=== PATIENT | male | born 1990 | race Caucasian/White ===

== ENCOUNTER 2016-10-31 22:23 | Emergency (ER) | payer MEDICAID ==
[~2016-10-31] VITALS: Ht 172.7 cm; Wt 50.0 kg
[~2016-10-31 22:23] MED LIST: AMOXICILLIN 50500 MG PO; ATIVAN 1MG T1 MG/TAB; ATIVAN 1MG T1 MG/TAB PO; ATIVAN2 MG/ML PO; CALCIUM 600 + V1 TA1 PO; CARAFATE S1 GM/10 ML PO; CEFTIN500 MG PO; CLEOCIN HC150 MG/CAP PO; CLEOCIN HCL300 MG PEG; CLEOCIN HCL300 MG PO; COLACE 100100 MG/CAP; COLACE 100100 MG/CAP PO; DEPAKOTE; DEPAKOTE 250MG250 MG PO; DEPAKOTE ER 50500 MG PO; DEPAKOTE500 MG PO; ENSURE 237 ML237 ML PEG; KEPPRA 500MG500 MG PO; KEPPRA750 MG PO; LAMICTAL 100MG100 MG; LAMICTAL200 MG PO; LEVAQUIN 750MG750 M1 PEG; LEVAQUIN 750MG750 M1 PO; LEVETIRACETAM PO; LEVOCARNITINE PO; LEVOCARNITINE330 MG PO; MIDAZOLAM 2 MG/ML INH; MIDAZOLAM NAS; ONFI 10MG; PERCOCET 325 MG1 TA2 PO; PROTONIX 40MG T40 MG; PROTONIX 40MG T40 MG PO; SENNA1 TAB PO; TUMS SMOOTHIES750 M1; VIMPAT200 MG; VIMPAT50 MG PO; VITAMIN D 50,1.25 MG PO; VITAMIN D1000 IU; [UNRECOGNIZED DRUG - OTHER] PO; [UNRECOGNIZED DRUG - OTHER] RC
[2016-10-31 22:24] VITALS: TEMP 99.1
[2016-10-31] MEDS ORDERED: ONFI 20MG PO (22:47)
[2016-10-31] MEDS ORDERED: PEPCID40 MG PO (22:47)
[2016-10-31 23:06] LABS: BASO # 0.1 (0.0-0.2); BASO % 0.3 % (0.0-2.0); EOS % 0.1 % (0-4.0); GRAN # 12.1 (1.4-6.5); GRAN % 81.8 % (42.2-75.2); HEMATOCRIT 41.8 % (42.0-52.0); HEMOGLOBIN 13.9 g/dl (13.5-18.0); LYMPH # 1.4 (1.2-3.4); LYMPH % 9.2 % (20.0-51.0); MEAN CELL VOLUME 93 fl (80.0-100.0); MEAN CORPUSCULAR HEMOGLOBIN 31 pg (27.0-31.0); MEAN CORPUSCULAR HGB CONC 33 g/dl (33.0-37.0); MEAN PLATELET VOLUME 10.2 fl (7.4-10.4); MONO # 1.2 (0.1-0.6); MONO % 7.9 % (1.7-9.3); PLATELET COUNT 235 K/mm3 (130-400); REDCELL DISTRIBUTION WIDTH-CV 12.5 % (11.5-14.5); WHITE BLOOD COUNT 14.8 K/mm3 (4.8-10.8)
[2016-10-31 23:15] LABS: ADJUSTED CALCIUM 9.5 mg/dL (8.4-10.2); ALBUMIN 4.8 gm/dL (3.5-5.0); BILIRUBIN,TOTAL 0.4 mg/dL (0.0-1.0); CALCIUM 10.1 mg/dL (8.4-10.2); CREATININE, serum 0.97 mg/dL (0.66-1.25); POTASSIUM 3.8 mmol/L (3.4-5.0); TOTAL PROTEIN 8.2 gm/dL (6.4-8.2)
[2016-10-31] MEDS ORDERED: SLOW FE142 MG PO (23:16)
[2016-10-31] MEDS ORDERED: METAMUCIL3.4 GM/DOS PO (23:17)
[2016-10-31] MEDS ORDERED: LINZESS145CAP (23:19)
[2016-10-31 23:40] LABS: PH 5 (5-8); SQUAMOUS EPITHELIAL 0-2 /hpf; URINE APPEARANCE Clear; URINE BACTERIA Rare /hpf; URINE BILIRUBIN Negative (NEGATIVE); URINE BLOOD Negative (NEGATIVE); URINE COLOR Yellow; URINE GLUCOSE Negative (NEGATIVE); URINE KETONE Negative (NEGATIVE); URINE RBC None Seen /hpf; URINE UROBILINOGEN Negative (NEGATIVE); URINE WBC 0-2 /hpf
[2016-10-31] MEDS ORDERED: LEVAQUIN 5500 MG/TA1 PO (23:47)
[2016-11-01 00:20] VITALS: BP 102/63; PULSE 93
== END 2016-11-01 00:20 | disposition home or self-care (01) ==
LOC: COL.ER 22:23
PROVIDERS: Emergency Medicine
DX: G40.909 Epilepsy, unspecified, not intractable, without status epilepticus (principal); J18.9 Pneumonia, unspecified organism; Z87.820 Personal history of traumatic brain injury; G80.9 Cerebral palsy, unspecified
CPT/HCPCS: J0696; J7030

== ENCOUNTER 2016-11-01 12:51 | Inpatient (IN) | payer MEDICAID ==
[~2016-11-01] VITALS: Ht 172.7 cm; Wt 48.4 kg
[2016-11-01] VITALS (173 sets, daily range): BP systolic 96–106; BP diastolic 53–61; PULSE 91–114; TEMP 100.5–101.1; O2SAT 91–100
[~2016-11-01 12:51] MED LIST changes: +LEVAQUIN 5500 MG/TA1 PO; +LINZESS145CAP; +METAMUCIL3.4 GM/DOS PO; +ONFI 20MG PO; +PEPCID40 MG PO; +SLOW FE142 MG PO
[2016-11-01 13:21] LABS: ADJUSTED CALCIUM 9.9 mg/dL (8.4-10.2); ALBUMIN 4.4 gm/dL (3.5-5.0); BILIRUBIN,TOTAL 0.7 mg/dL (0.0-1.0); C-REACTIVE PROTEIN 1.1 mg/dL (0.0-0.9); CALCIUM 10.2 mg/dL (8.4-10.2); CREATININE, serum 1.04 mg/dL (0.66-1.25); POTASSIUM 4.4 mmol/L (3.4-5.0); TOTAL PROTEIN 7.9 gm/dL (6.4-8.2)
[2016-11-01 13:23] LABS: HEMATOCRIT 43.3 % (42.0-52.0); HEMOGLOBIN 13.6 g/dl (13.5-18.0); MEAN CELL VOLUME 97 fl (80.0-100.0); MEAN CORPUSCULAR HEMOGLOBIN 31 pg (27.0-31.0); MEAN CORPUSCULAR HGB CONC 31 g/dl (33.0-37.0); MEAN PLATELET VOLUME 10.7 fl (7.4-10.4); PLATELET COUNT 286 K/mm3 (130-400); RED BLOOD COUNT 4.46 M/mm3 (4.20-5.60); REDCELL DISTRIBUTION WIDTH-CV 12.8 % (11.5-14.5); WHITE BLOOD COUNT 15.5 K/mm3 (4.8-10.8)
[2016-11-01 13:35] LABS: PROLACTIN 69.9 ng/mL (3.7-17.9)
[2016-11-01 13:45] LABS: ADD PATHOLOGY DIFF REVIEW NO
[2016-11-01 14:19] LABS: PH 6 (5-8); URINE APPEARANCE Clear; URINE COLOR Yellow
[2016-11-01 14:20] LABS: URINE BILIRUBIN Negative (NEGATIVE); URINE BLOOD Negative (NEGATIVE); URINE GLUCOSE Negative (NEGATIVE); URINE KETONE Negative (NEGATIVE); URINE UROBILINOGEN Negative (NEGATIVE)
[2016-11-01 14:29] LABS: URINE BACTERIA Rare /hpf
[2016-11-01 14:43] LABS: BAND 10 % (0-10); NEUTROPHILS 48 % (42.0-75.2); PLATELET ESTIMATE NORMAL (NORMAL); TOTAL CELLS COUNTED 100
[2016-11-01 17:47] LABS: INFLUENZA B NEGATIVE
[2016-11-01 22:10] LABS: ALLEN TEST YES; ALLENS TEST RESULT PASS; ARTERIAL BLD GAS O2 SATURATION 98.5 % (92-100); ARTERIAL BLOOD GAS BASE EXCESS -3.2 (-2-2); ARTERIAL BLOOD GAS HCO3 20.9 meq/L (22-26); ARTERIAL BLOOD GAS PO2 145.6 mmHg (80-100); ATS? YES
[2016-11-02] VITALS (811 sets, daily range): BP systolic 86–143; BP diastolic 40–93; PULSE 65–104; TEMP 97–98.9; O2SAT 94–100
[2016-11-02 05:27] LABS: ARTERIAL BLD GAS TCO2 CT 23.8; ARTERIAL BLOOD GAS HCO3 22.5 meq/L (22-26); ARTERIAL BLOOD GAS PHT 7.34 C (7.35-7.45); ARTERIAL BLOOD GAS pH 7.34 (7.35-7.45)
[2016-11-02 05:29] LABS: ALLEN TEST YES; ALLENS TEST RESULT PASS; ARTERIAL BLD GAS TCO2 CT 23.8; ARTERIAL BLOOD GAS HCO3 22.5 meq/L (22-26); ARTERIAL BLOOD GAS PO2 138.3 mmHg (80-100); ARTERIAL BLOOD GAS pH 7.34 (7.35-7.45); ATS? YES
[2016-11-02 05:54] LABS: BASO % 0.4 % (0.0-2.0); EOS % 0.2 % (0-4.0); GRAN % 58.5 % (42.2-75.2); LYMPH # 2.8 (1.2-3.4); LYMPH % 32.6 % (20.0-51.0); MEAN CELL VOLUME 96 fl (80.0-100.0); MEAN CORPUSCULAR HGB CONC 32 g/dl (33.0-37.0); MEAN PLATELET VOLUME 10.2 fl (7.4-10.4); MONO # 0.7 (0.1-0.6); MONO % 8.2 % (1.7-9.3); RED BLOOD COUNT 3.41 M/mm3 (4.20-5.60); WHITE BLOOD COUNT 8.6 K/mm3 (4.8-10.8)
[2016-11-02 05:55] LABS: HEMATOCRIT 32.8 % (42.0-52.0); HEMOGLOBIN 10.6 g/dl (13.5-18.0); MEAN CORPUSCULAR HEMOGLOBIN 31 pg (27.0-31.0); PLATELET COUNT 173 K/mm3 (130-400)
[2016-11-02 06:17] LABS: CALCIUM 7.8 mg/dL (8.4-10.2); CREATININE, serum 0.75 mg/dL (0.66-1.25); POTASSIUM 3.6 mmol/L (3.4-5.0)
[2016-11-02 11:30] LABS: ARTERIAL BLD GAS TCO2 CT 23.3; ARTERIAL BLOOD GAS HCO3 22.1 meq/L (22-26); ARTERIAL BLOOD GAS PHT 7.37 C (7.35-7.45); ARTERIAL BLOOD GAS pH 7.37 (7.35-7.45); OXYHEMOGLOBIN 96.8 %
[2016-11-02 11:32] LABS: ARTERIAL BLOOD GAS PO2 132.9 mmHg (80-100); ARTERIAL BLOOD GAS PO2T 132.9 (80-100); ATS? YES
[2016-11-02 12:59] LABS: ARTERIAL BLOOD GAS PO2 138.3 mmHg (80-100); ARTERIAL BLOOD GAS PO2T 138.3 (80-100); ATS? YES
[2016-11-03] VITALS (945 sets, daily range): BP systolic 89–106; BP diastolic 41–67; PULSE 79–97; TEMP 97–99.7; O2SAT 95–100
[2016-11-03 06:07] LABS: BASO % 0.3 % (0.0-2.0); EOS # 0.1 (0.0-0.7); EOS % 2.2 % (0-4.0); GRAN # 3.2 (1.4-6.5); GRAN % 50.7 % (42.2-75.2); LYMPH # 2.5 (1.2-3.4); LYMPH % 38.6 % (20.0-51.0); MEAN CELL VOLUME 96 fl (80.0-100.0); MEAN CORPUSCULAR HGB CONC 33 g/dl (33.0-37.0); MEAN PLATELET VOLUME 10.6 fl (7.4-10.4); MONO # 0.5 (0.1-0.6); PLATELET COUNT 155 K/mm3 (130-400); RED BLOOD COUNT 3.02 M/mm3 (4.20-5.60); WHITE BLOOD COUNT 6.3 K/mm3 (4.8-10.8)
[2016-11-03 06:12] LABS: HEMATOCRIT 28.9 % (42.0-52.0); HEMOGLOBIN 9.4 g/dl (13.5-18.0); MEAN CORPUSCULAR HEMOGLOBIN 31 pg (27.0-31.0)
[2016-11-03 06:50] LABS: ALBUMIN 2.7 gm/dL (3.5-5.0); CALCIUM 8.1 mg/dL (8.4-10.2); CREATININE, serum 0.62 mg/dL (0.66-1.25); MAGNESIUM 1.7 mg/dL (1.6-2.3); POTASSIUM 3.3 mmol/L (3.4-5.0)
[2016-11-03 09:29] LABS: PHOSPHOROUS 2.4 mg/dL (2.5-4.5)
[2016-11-03 10:32] LABS: ARTERIAL BLD GAS O2 SATURATION 98.1 % (92-100); ARTERIAL BLD GAS TCO2 CT 24.9; ARTERIAL BLOOD GAS BASE EXCESS -1.4 (-2-2); ARTERIAL BLOOD GAS HCO3 23.7 meq/L (22-26); ARTERIAL BLOOD GAS PHT 7.38 C (7.35-7.45); ARTERIAL BLOOD GAS pH 7.38 (7.35-7.45); OXYHEMOGLOBIN 97.1 %
[2016-11-03 10:34] LABS: ABG VENTILATOR TIDAL VOLUME 400 mL; ARTERIAL BLOOD GAS PO2 139.1 mmHg (80-100); ARTERIAL BLOOD GAS PO2T 139.1 (80-100); ATS? YES
[2016-11-04] VITALS (986 sets, daily range): BP systolic 91–112; BP diastolic 48–75; PULSE 69–81; TEMP 97–98.6; O2SAT 85–100
[2016-11-04 04:39] LABS: ARTERIAL BLD GAS O2 SATURATION 98.2 % (92-100); ARTERIAL BLD GAS TCO2 CT 26.6; ARTERIAL BLOOD GAS BASE EXCESS 1.5 (-2-2); ARTERIAL BLOOD GAS HCO3 25.4 meq/L (22-26); ARTERIAL BLOOD GAS PHT 7.45 C (7.35-7.45); ARTERIAL BLOOD GAS pH 7.45 (7.35-7.45); OXYHEMOGLOBIN 97.1 %
[2016-11-04 04:40] LABS: ALLEN TEST YES; ALLENS TEST RESULT PASS; ARTERIAL BLOOD GAS PO2 135.5 mmHg (80-100); ARTERIAL BLOOD GAS PO2T 135.5 (80-100); ATS? YES
[2016-11-04 06:17] LABS: BASO % 0.2 % (0.0-2.0); EOS # 0.2 (0.0-0.7); EOS % 4.6 % (0-4.0); GRAN # 2.4 (1.4-6.5); GRAN % 47.7 % (42.2-75.2); LYMPH # 2.1 (1.2-3.4); LYMPH % 41.3 % (20.0-51.0); MEAN CELL VOLUME 95 fl (80.0-100.0); MEAN CORPUSCULAR HGB CONC 32 g/dl (33.0-37.0); MONO # 0.3 (0.1-0.6); PLATELET COUNT 157 K/mm3 (130-400); RED BLOOD COUNT 3.27 M/mm3 (4.20-5.60)
[2016-11-04 06:21] LABS: HEMATOCRIT 31.1 % (42.0-52.0); MEAN CORPUSCULAR HEMOGLOBIN 31 pg (27.0-31.0)
[2016-11-04 06:40] LABS: CALCIUM 8.4 mg/dL (8.4-10.2); CREATININE, serum 0.59 mg/dL (0.66-1.25); MAGNESIUM 1.6 mg/dL (1.6-2.3); PHOSPHOROUS 3.5 mg/dL (2.5-4.5); POTASSIUM 3.3 mmol/L (3.4-5.0)
[2016-11-05] VITALS (1112 sets, daily range): BP systolic 100–121; BP diastolic 55–64; PULSE 66–92; TEMP 97.8–98.9; O2SAT 59–100
[2016-11-05 04:28] LABS: ARTERIAL BLD GAS O2 SATURATION 97.6 % (92-100); ARTERIAL BLOOD GAS HCO3 27.7 meq/L (22-26); ARTERIAL BLOOD GAS PHT 7.43 C (7.35-7.45); ARTERIAL BLOOD GAS PO2 112.2 mmHg (80-100); ARTERIAL BLOOD GAS PO2T 112.2 (80-100); ARTERIAL BLOOD GAS pH 7.43 (7.35-7.45); OXYHEMOGLOBIN 96.5 %
[2016-11-05 04:30] LABS: ALLEN TEST YES; ALLENS TEST RESULT PASS; ATS? YES
[2016-11-05 05:52] LABS: BASO % 0.3 % (0.0-2.0); EOS # 0.4 (0.0-0.7); EOS % 5.9 % (0-4.0); GRAN # 3.5 (1.4-6.5); LYMPH # 2.8 (1.2-3.4); LYMPH % 38.5 % (20.0-51.0); MEAN CELL VOLUME 93 fl (80.0-100.0); MEAN CORPUSCULAR HGB CONC 32 g/dl (33.0-37.0); MEAN PLATELET VOLUME 10.2 fl (7.4-10.4); MONO # 0.4 (0.1-0.6); PLATELET COUNT 188 K/mm3 (130-400); RED BLOOD COUNT 3.86 M/mm3 (4.20-5.60); WHITE BLOOD COUNT 7.2 K/mm3 (4.8-10.8)
[2016-11-05 06:01] LABS: HEMOGLOBIN 11.6 g/dl (13.5-18.0); MEAN CORPUSCULAR HEMOGLOBIN 30 pg (27.0-31.0)
[2016-11-05 06:08] LABS: CALCIUM 9.8 mg/dL (8.4-10.2); CREATININE, serum 0.64 mg/dL (0.66-1.25); MAGNESIUM 1.7 mg/dL (1.6-2.3); PHOSPHOROUS 4.7 mg/dL (2.5-4.5); POTASSIUM 3.7 mmol/L (3.4-5.0)
[2016-11-06] VITALS (926 sets, daily range): BP systolic 98–126; BP diastolic 61–79; PULSE 67–93; TEMP 97.6–99.3; O2SAT 72–100
[2016-11-06 04:42] LABS: ARTERIAL BLD GAS O2 SATURATION 98.4 % (92-100); ARTERIAL BLD GAS TCO2 CT 29.4; ARTERIAL BLOOD GAS BASE EXCESS 4.2 (-2-2); ARTERIAL BLOOD GAS HCO3 28.2 meq/L (22-26); ARTERIAL BLOOD GAS PHT 7.47 C (7.35-7.45); ARTERIAL BLOOD GAS pH 7.47 (7.35-7.45); OXYHEMOGLOBIN 97.4 %
[2016-11-06 04:44] LABS: ALLEN TEST NO; ARTERIAL BLOOD GAS PO2 140.8 mmHg (80-100); ARTERIAL BLOOD GAS PO2T 140.8 (80-100); ATS? YES
[2016-11-06 05:36] LABS: BASO % 0.3 % (0.0-2.0); EOS # 0.5 (0.0-0.7); EOS % 6.8 % (0-4.0); GRAN # 4.3 (1.4-6.5); GRAN % 54.4 % (42.2-75.2); LYMPH # 2.5 (1.2-3.4); LYMPH % 31.7 % (20.0-51.0); MEAN CELL VOLUME 95 fl (80.0-100.0); MEAN CORPUSCULAR HGB CONC 32 g/dl (33.0-37.0); MEAN PLATELET VOLUME 9.9 fl (7.4-10.4); MONO # 0.5 (0.1-0.6); MONO % 6.5 % (1.7-9.3); PLATELET COUNT 197 K/mm3 (130-400); RED BLOOD COUNT 3.89 M/mm3 (4.20-5.60); WHITE BLOOD COUNT 7.9 K/mm3 (4.8-10.8)
[2016-11-06 05:40] LABS: CALCIUM 9.9 mg/dL (8.4-10.2); CREATININE, serum 0.71 mg/dL (0.66-1.25); MAGNESIUM 1.7 mg/dL (1.6-2.3); PHOSPHOROUS 4.4 mg/dL (2.5-4.5); POTASSIUM 3.5 mmol/L (3.4-5.0)
[2016-11-06 06:10] LABS: HEMATOCRIT 36.9 % (42.0-52.0); HEMOGLOBIN 11.9 g/dl (13.5-18.0); MEAN CORPUSCULAR HEMOGLOBIN 31 pg (27.0-31.0)
[2016-11-07] VITALS (911 sets, daily range): BP systolic 99–132; BP diastolic 54–82; PULSE 76–91; TEMP 97–98.9; O2SAT 77–100
[2016-11-07 06:35] LABS: BASO % 0.3 % (0.0-2.0); EOS # 0.4 (0.0-0.7); EOS % 4.3 % (0-4.0); GRAN # 5.6 (1.4-6.5); GRAN % 59.2 % (42.2-75.2); HEMATOCRIT 40.2 % (42.0-52.0); LYMPH # 2.7 (1.2-3.4); LYMPH % 28.3 % (20.0-51.0); MEAN CELL VOLUME 95 fl (80.0-100.0); MEAN CORPUSCULAR HEMOGLOBIN 31 pg (27.0-31.0); MEAN CORPUSCULAR HGB CONC 32 g/dl (33.0-37.0); MEAN PLATELET VOLUME 10.1 fl (7.4-10.4); MONO # 0.7 (0.1-0.6); MONO % 7.5 % (1.7-9.3); PLATELET COUNT 209 K/mm3 (130-400); RED BLOOD COUNT 4.25 M/mm3 (4.20-5.60); REDCELL DISTRIBUTION WIDTH-CV 12.6 % (11.5-14.5); WHITE BLOOD COUNT 9.5 K/mm3 (4.8-10.8)
[2016-11-07 06:49] LABS: CALCIUM 10.1 mg/dL (8.4-10.2); CREATININE, serum 0.65 mg/dL (0.66-1.25); POTASSIUM 4.3 mmol/L (3.4-5.0)
[2016-11-07] MEDS ORDERED: IPRATROPIUM BROM3 M1 IH ×2 (11:24→12:09)
[2016-11-07] MEDS ORDERED: LOVENOX 4040 MG/0.4 SQ (11:24)
[2016-11-07] MEDS ORDERED: HEPARIN LOCK FLU5 M1 IV ×2 (11:24→12:09)
[2016-11-07] MEDS ORDERED: DILAUDID 2MG/2 MG/M1 IV (12:10)
[2016-11-07] MEDS ORDERED: NARCAN .4MG0.4 MG/ML IV (12:12)
[2016-11-07] MEDS ORDERED: ROMAZICON 00.1 MG/ML IV (12:13)
[2016-11-07] MEDS ORDERED: NS INT FLUSH 1010 ML IV ×2 (12:13→12:14)
[2016-11-07] MEDS ORDERED: PEPCID 20M20 MG/2 ML IV (12:15)
[2016-11-07 20:12] LABS: PH 7 (5-8); SQUAMOUS EPITHELIAL None Seen /hpf; URINE APPEARANCE Cloudy; URINE BACTERIA None Seen /hpf; URINE BILIRUBIN Negative (NEGATIVE); URINE BLOOD 3+ (NEGATIVE); URINE COLOR Yellow; URINE GLUCOSE Negative (NEGATIVE); URINE KETONE Negative (NEGATIVE); URINE RBC >50 /hpf; URINE UROBILINOGEN Negative (NEGATIVE); URINE WBC None Seen /hpf
[2016-11-08] VITALS (758 sets, daily range): BP systolic 99–126; BP diastolic 56–81; PULSE 55–101; TEMP 97.4–98.4; O2SAT 79–100
[2016-11-08 05:51] LABS: BASO % 0.5 % (0.0-2.0); EOS # 0.4 (0.0-0.7); EOS % 5.8 % (0-4.0); GRAN # 3.4 (1.4-6.5); GRAN % 52.5 % (42.2-75.2); HEMATOCRIT 38.3 % (42.0-52.0); HEMOGLOBIN 12.3 g/dl (13.5-18.0); LYMPH # 2.2 (1.2-3.4); LYMPH % 33.8 % (20.0-51.0); MEAN CELL VOLUME 93 fl (80.0-100.0); MEAN CORPUSCULAR HEMOGLOBIN 30 pg (27.0-31.0); MEAN CORPUSCULAR HGB CONC 32 g/dl (33.0-37.0); MEAN PLATELET VOLUME 9.7 fl (7.4-10.4); MONO # 0.5 (0.1-0.6); MONO % 7.1 % (1.7-9.3); PLATELET COUNT 197 K/mm3 (130-400); REDCELL DISTRIBUTION WIDTH-CV 12.4 % (11.5-14.5); WHITE BLOOD COUNT 6.4 K/mm3 (4.8-10.8)
[2016-11-08 06:05] LABS: ADJUSTED CALCIUM 9.8 mg/dL (8.4-10.2); ALBUMIN 3.9 gm/dL (3.5-5.0); BILIRUBIN,TOTAL 0.6 mg/dL (0.0-1.0); CALCIUM 9.7 mg/dL (8.4-10.2); CREATININE, serum 0.66 mg/dL (0.66-1.25); MAGNESIUM 1.9 mg/dL (1.6-2.3); PHOSPHOROUS 3.5 mg/dL (2.5-4.5); POTASSIUM 3.9 mmol/L (3.4-5.0); TOTAL PROTEIN 7.3 gm/dL (6.4-8.2)
[2016-11-09] VITALS (502 sets, daily range): BP systolic 96–109; BP diastolic 51–68; PULSE 60–92; TEMP 97.3–97.6; O2SAT 74–100
[2016-11-09 04:55] LABS: BASO % 0.4 % (0.0-2.0); EOS # 0.3 (0.0-0.7); EOS % 3.8 % (0-4.0); GRAN # 3.8 (1.4-6.5); GRAN % 53.7 % (42.2-75.2); HEMOGLOBIN 12.2 g/dl (13.5-18.0); LYMPH # 2.4 (1.2-3.4); LYMPH % 33.7 % (20.0-51.0); MEAN CELL VOLUME 93 fl (80.0-100.0); MEAN CORPUSCULAR HEMOGLOBIN 31 pg (27.0-31.0); MEAN CORPUSCULAR HGB CONC 33 g/dl (33.0-37.0); MONO # 0.6 (0.1-0.6); MONO % 8.3 % (1.7-9.3); PLATELET COUNT 221 K/mm3 (130-400); RED BLOOD COUNT 3.98 M/mm3 (4.20-5.60); REDCELL DISTRIBUTION WIDTH-CV 12.3 % (11.5-14.5); WHITE BLOOD COUNT 7.1 K/mm3 (4.8-10.8)
[2016-11-09 04:59] LABS: HEMATOCRIT 36.8 % (42.0-52.0)
[2016-11-09 05:07] LABS: ADJUSTED CALCIUM 9.7 mg/dL (8.4-10.2); ALBUMIN 3.8 gm/dL (3.5-5.0); BILIRUBIN,TOTAL 0.5 mg/dL (0.0-1.0); CALCIUM 9.5 mg/dL (8.4-10.2); CREATININE, serum 0.63 mg/dL (0.66-1.25); MAGNESIUM 1.9 mg/dL (1.6-2.3); PHOSPHOROUS 3.7 mg/dL (2.5-4.5); POTASSIUM 3.9 mmol/L (3.4-5.0); TOTAL PROTEIN 7.1 gm/dL (6.4-8.2)
== END 2016-11-09 12:40 | disposition home or self-care (01) | DRG 981 ==
LOC: COL.ER 12:51 → ICU 14:42 → EU 14:55 → ICU 14:55
PROVIDERS: Anesthesiology Critical Care Medicine; Emergency Medicine; Internal Medicine; Internal Medicine Cardiovascular Disease; Internal Medicine Pulmonary Disease
PROC: 5A1955Z Respiratory Ventilation, Greater than 96 Consecutive Hours (ICD-10-PCS; principal; 2016-11-01)
PROC: 0B958ZZ Drainage of Right Middle Lobe Bronchus, Via Natural or Artificial Opening Endoscopic (ICD-10-PCS; 2016-11-05)
PROC: 0B968ZZ Drainage of Right Lower Lobe Bronchus, Via Natural or Artificial Opening Endoscopic (ICD-10-PCS; 2016-11-05)
PROC: 0B988ZZ Drainage of Left Upper Lobe Bronchus, Via Natural or Artificial Opening Endoscopic (ICD-10-PCS; 2016-11-05)
PROC: 0B9B8ZZ Drainage of Left Lower Lobe Bronchus, Via Natural or Artificial Opening Endoscopic (ICD-10-PCS; 2016-11-05)
DX: G40.901 Epilepsy, unspecified, not intractable, with status epilepticus (principal); J69.0 Pneumonitis due to inhalation of food and vomit; G80.1 Spastic diplegic cerebral palsy; E87.4 Mixed disorder of acid-base balance; Q67.5 Congenital deformity of spine; Z66 Do not resuscitate; E16.2 Hypoglycemia, unspecified; E87.6 Hypokalemia
CPT/HCPCS: 99223-AI; 99233-AI; 99239; C1751; C9254; J0456; J1170; J1644; J1650; J2060; J2543; J2704; J3475; J3480; J7040; J7042; J7050; Q2009

== ENCOUNTER 2016-11-27 18:07 | Inpatient (IN) | payer MEDICAID ==
[2016-11-27] VITALS (126 sets, daily range): BP systolic 101–113; BP diastolic 60–79; PULSE 104–105; TEMP 96.9–99; O2SAT 62–100
[~2016-11-27] VITALS: Ht 172.7 cm; Wt 55.6 kg
[~2016-11-27 18:07] MED LIST changes: +DILAUDID 2MG/2 MG/M1 IV; +HEPARIN LOCK FLU5 M1 IV; +IPRATROPIUM BROM3 M1 IH; +LOVENOX 4040 MG/0.4 SQ; +NARCAN .4MG0.4 MG/ML IV; +NS INT FLUSH 1010 ML IV; +PEPCID 20M20 MG/2 ML IV; +ROMAZICON 00.1 MG/ML IV
[2016-11-27] MEDS ORDERED: SABRIL500 MG/Pac PO ×2 (18:20→18:21)
[2016-11-27 18:27] LABS: HEMATOCRIT 44.3 % (42.0-52.0); HEMOGLOBIN 14.6 g/dl (13.5-18.0); MEAN CELL VOLUME 94 fl (80.0-100.0); MEAN CORPUSCULAR HEMOGLOBIN 31 pg (27.0-31.0); MEAN CORPUSCULAR HGB CONC 33 g/dl (33.0-37.0); PLATELET COUNT 284 K/mm3 (130-400); RED BLOOD COUNT 4.73 M/mm3 (4.20-5.60); REDCELL DISTRIBUTION WIDTH-CV 12.7 % (11.5-14.5)
[2016-11-27 18:38] LABS: ADD PATHOLOGY DIFF REVIEW NO; WHITE BLOOD COUNT 27.4 K/mm3 (4.8-10.8)
[2016-11-27 18:39] LABS: ADJUSTED CALCIUM 9.8 mg/dL (8.4-10.2); ALBUMIN 4.9 gm/dL (3.5-5.0); BILIRUBIN,TOTAL 0.7 mg/dL (0.0-1.0); C-REACTIVE PROTEIN 1.1 mg/dL (0.0-0.9); CALCIUM 10.5 mg/dL (8.4-10.2); CREATININE, serum 0.71 mg/dL (0.66-1.25); MAGNESIUM 1.7 mg/dL (1.6-2.3); POTASSIUM 4.2 mmol/L (3.4-5.0); TOTAL PROTEIN 8.5 gm/dL (6.4-8.2)
[2016-11-27 18:41] LABS: BAND 2 % (0-10); BASOPHIL 1 % (0-2); NEUTROPHILS 89 % (42.0-75.2); TOTAL CELLS COUNTED 100
[2016-11-27 18:43] LABS: ANISOCYTOSIS 1+; STOMATOCYTE 1+
[2016-11-27 19:13] LABS: ALLEN TEST YES; ALLENS TEST RESULT PASS; ARTERIAL BLD GAS O2 SATURATION 94.6 % (92-100); ARTERIAL BLD GAS TCO2 CT 27.5; ARTERIAL BLOOD GAS BASE EXCESS 1.9 (-2-2); ARTERIAL BLOOD GAS HCO3 26.3 meq/L (22-26); ARTERIAL BLOOD GAS PO2 75.7 mmHg (80-100); ARTERIAL BLOOD GAS pH 7.43 (7.35-7.45); ATS? YES; PH 6 (5-8); SQUAMOUS EPITHELIAL 0-2 /hpf; URINE APPEARANCE Hazy; URINE BACTERIA None Seen /hpf; URINE BILIRUBIN Negative (NEGATIVE); URINE BLOOD Negative (NEGATIVE); URINE COLOR Yellow; URINE GLUCOSE Negative (NEGATIVE); URINE KETONE Negative (NEGATIVE); URINE RBC None Seen /hpf; URINE UROBILINOGEN Negative (NEGATIVE); URINE WBC 0-2 /hpf
[2016-11-27 19:27] LABS: PROLACTIN 13.8 ng/mL (3.7-17.9)
[2016-11-27 19:34] LABS: INFLUENZA B NEGATIVE
[2016-11-28] VITALS (299 sets, daily range): BP systolic 96–115; BP diastolic 49–64; PULSE 63–95; TEMP 97.3–97.8; O2SAT 83–100
[2016-11-28 05:47] LABS: BASO % 0.2 % (0.0-2.0); EOS # 0.1 (0.0-0.7); EOS % 0.7 % (0-4.0); GRAN # 10.9 (1.4-6.5); LYMPH # 2.8 (1.2-3.4); LYMPH % 19.6 % (20.0-51.0); MEAN CELL VOLUME 97 fl (80.0-100.0); MEAN CORPUSCULAR HGB CONC 32 g/dl (33.0-37.0); MEAN PLATELET VOLUME 9.9 fl (7.4-10.4); MONO # 0.5 (0.1-0.6); MONO % 3.2 % (1.7-9.3); PLATELET COUNT 201 K/mm3 (130-400); RED BLOOD COUNT 3.55 M/mm3 (4.20-5.60); REDCELL DISTRIBUTION WIDTH-CV 12.7 % (11.5-14.5); WHITE BLOOD COUNT 14.3 K/mm3 (4.8-10.8)
[2016-11-28 05:51] LABS: HEMATOCRIT 34.3 % (42.0-52.0); HEMOGLOBIN 10.9 g/dl (13.5-18.0); MEAN CORPUSCULAR HEMOGLOBIN 31 pg (27.0-31.0)
[2016-11-28 06:06] LABS: CALCIUM 8.7 mg/dL (8.4-10.2); CREATININE, serum 0.68 mg/dL (0.66-1.25); POTASSIUM 4.3 mmol/L (3.4-5.0)
[2016-11-29 00:47] VITALS: BP 108/65; PULSE 99; TEMP 98
[2016-11-29 04:43] VITALS: BP 98/55; PULSE 85
[2016-11-29 07:32] LABS: BASO % 0.3 % (0.0-2.0); EOS # 0.3 (0.0-0.7); EOS % 5.2 % (0-4.0); GRAN % 49.3 % (42.2-75.2); LYMPH # 2.4 (1.2-3.4); LYMPH % 39.1 % (20.0-51.0); MEAN CELL VOLUME 95 fl (80.0-100.0); MEAN CORPUSCULAR HGB CONC 32 g/dl (33.0-37.0); MEAN PLATELET VOLUME 10.3 fl (7.4-10.4); MONO # 0.4 (0.1-0.6); MONO % 5.8 % (1.7-9.3); PLATELET COUNT 192 K/mm3 (130-400); RED BLOOD COUNT 3.56 M/mm3 (4.20-5.60); REDCELL DISTRIBUTION WIDTH-CV 12.6 % (11.5-14.5); WHITE BLOOD COUNT 6.2 K/mm3 (4.8-10.8)
[2016-11-29 07:51] VITALS: BP 103/52; PULSE 89; TEMP 97.9
[2016-11-29 08:15] LABS: HEMATOCRIT 33.9 % (42.0-52.0); HEMOGLOBIN 10.8 g/dl (13.5-18.0); MEAN CORPUSCULAR HEMOGLOBIN 30 pg (27.0-31.0)
[2016-11-29 11:18] VITALS: BP 111/51; PULSE 87; TEMP 97.6
[2016-11-29 11:38] LABS: MAGNESIUM 1.9 mg/dL (1.6-2.3); POTASSIUM 3.7 mmol/L (3.4-5.0)
[2016-11-29] MEDS ORDERED: AUGMENTIN 400100 ML PO (12:15)
[2016-11-29] MEDS ORDERED: PROTONIX 40MG T40 MG PO (12:15)
[2016-11-29] MEDS ORDERED: ZITHROMAX500 M2 PO (12:15)
== END 2016-11-29 14:50 | disposition home or self-care (01) | DRG 177 ==
LOC: COL.ER 18:07 → MEDICAL 20:21 → ICU 20:21 → MEDICAL 11-28 17:24
PROVIDERS: Emergency Medicine; Internal Medicine; Internal Medicine Cardiovascular Disease; Internal Medicine Pulmonary Disease
DX: J69.0 Pneumonitis due to inhalation of food and vomit (principal); J96.01 Acute respiratory failure with hypoxia; G80.1 Spastic diplegic cerebral palsy; G40.201 Localization-related (focal) (partial) symptomatic epilepsy and epileptic syndromes with complex partial seizures, not intractable, with status epilepticus; R13.12 Dysphagia, oropharyngeal phase
CPT/HCPCS: 99223-AI; 99238; C9113; C9254; J0456; J1650; J2060; J2185; J2543; J7030; J7050

== ENCOUNTER 2016-12-06 06:46 | Day surgery (SDC) | payer MEDICAID ==
[~2016-12-06] VITALS: Ht 172.7 cm; Wt 49.1 kg
[~2016-12-06 06:46] MED LIST changes: +AUGMENTIN 400100 ML PO; +SABRIL500 MG/Pac PO; +ZITHROMAX500 M2 PO
[2016-12-06 07:33] VITALS: BP 113/79; PULSE 70; TEMP 97.6
[2016-12-06 09:45] VITALS: BP 104/71; PULSE 78
[2016-12-06 10:00] VITALS: BP 110/69; PULSE 67
== END 2016-12-06 10:13 | disposition home or self-care (01) ==
LOC: SDCO 06:46
DX: I87.2 Venous insufficiency (chronic) (peripheral) (principal); G80.9 Cerebral palsy, unspecified; Z87.01 Personal history of pneumonia (recurrent); G40.909 Epilepsy, unspecified, not intractable, without status epilepticus; M41.9 Scoliosis, unspecified
CPT/HCPCS: C1788; J0690; J1100; J1644; J2250; J2405; J2704; J3010; J7120

== ENCOUNTER → 2016-12-17 | Outpatient (CLI) | payer MEDICAID ==
[~2016-12-17] MED LIST changes: +AMBIEN 10MG10 MG PO; +JEVITY 1.5 CAL237 ML PO; +LEVASOLN PEG; +NATURE'S BLEND M3 MG PO; +REGLAN 10MG/11 MG/ML PO; +VITAMINC1000TA
[2016-12-17 08:39] LABS: BASO # 0.1 (0.0-0.2); BASO % 0.6 % (0.0-2.0); EOS # 0.3 (0.0-0.7); EOS % 4.1 % (0-4.0); GRAN # 3.8 (1.4-6.5); GRAN % 46.8 % (42.2-75.2); HEMATOCRIT 46.2 % (42.0-52.0); LYMPH # 3.3 (1.2-3.4); LYMPH % 40.6 % (20.0-51.0); MEAN CELL VOLUME 93 fl (80.0-100.0); MEAN CORPUSCULAR HEMOGLOBIN 30 pg (27.0-31.0); MEAN CORPUSCULAR HGB CONC 33 g/dl (33.0-37.0); MEAN PLATELET VOLUME 10.7 fl (7.4-10.4); MONO # 0.6 (0.1-0.6); MONO % 7.7 % (1.7-9.3); PLATELET COUNT 267 K/mm3 (130-400); RED BLOOD COUNT 4.97 M/mm3 (4.20-5.60); REDCELL DISTRIBUTION WIDTH-CV 12.7 % (11.5-14.5); WHITE BLOOD COUNT 8.1 K/mm3 (4.8-10.8)
[2016-12-17 09:08] LABS: ADJUSTED CALCIUM 10.2 mg/dL (8.4-10.2); ALBUMIN 4.7 gm/dL (3.5-5.0); BILIRUBIN,TOTAL 0.7 mg/dL (0.0-1.0); CALCIUM 10.8 mg/dL (8.4-10.2); CREATININE, serum 0.68 mg/dL (0.66-1.25); POTASSIUM 3.8 mmol/L (3.4-5.0); TOTAL PROTEIN 8.3 gm/dL (6.4-8.2)
== END ==
LOC: COL.RAD 07:27
PROVIDERS: Internal Medicine
DX: Z01.818 Encounter for other preprocedural examination (principal); G40.804 Other epilepsy, intractable, without status epilepticus; R94.31 Abnormal electrocardiogram [ECG] [EKG]

== ENCOUNTER → 2016-12-18 | Outpatient (CLI) | payer MEDICAID ==
[2016-12-18 18:10] LABS: INR 1.1 (0.8-3.0); PROTHROMBIN TIME 12.4 SECONDS (9.7-12.8)
[2016-12-18 18:16] LABS: PH 7 (5-8); SQUAMOUS EPITHELIAL None Seen /hpf; URINE APPEARANCE Clear; URINE BACTERIA None Seen /hpf; URINE BILIRUBIN Negative (NEGATIVE); URINE BLOOD Negative (NEGATIVE); URINE COLOR Yellow; URINE GLUCOSE Negative (NEGATIVE); URINE KETONE Negative (NEGATIVE); URINE RBC 0-2 /hpf; URINE UROBILINOGEN Negative (NEGATIVE); URINE WBC 0-2 /hpf
== END ==
LOC: ZCOL.LAB 17:36
PROVIDERS: Internal Medicine
DX: Z02.89 Encounter for other administrative examinations (principal)

== ENCOUNTER 2016-12-23 22:42 | Inpatient (IN) | payer MEDICAID ==
[~2016-12-23] VITALS: Ht 172.7 cm; Wt 53.5 kg
[~2016-12-23 22:42] MED LIST changes: -AMBIEN 10MG10 MG PO; -JEVITY 1.5 CAL237 ML PO; -LEVASOLN PEG; -NATURE'S BLEND M3 MG PO; -REGLAN 10MG/11 MG/ML PO; -VITAMINC1000TA
[2016-12-23 23:38] LABS: VENOUS BLOOD GAS BE 4.8 (-4-4); VENOUS BLOOD GAS SAO2 65.3 % (60-80)
[2016-12-23 23:39] LABS: VENOUS BLOOD GAS SITE VENIPUNCTURE
[2016-12-23 23:44] LABS: BASO # 0.1 (0.0-0.2); BASO % 0.3 % (0.0-2.0); EOS # 0.1 (0.0-0.7); EOS % 0.5 % (0-4.0); GRAN # 16.5 (1.4-6.5); HEMATOCRIT 39.8 % (42.0-52.0); HEMOGLOBIN 12.9 g/dl (13.5-18.0); LYMPH # 2.8 (1.2-3.4); MEAN CELL VOLUME 93 fl (80.0-100.0); MEAN CORPUSCULAR HEMOGLOBIN 30 pg (27.0-31.0); MEAN CORPUSCULAR HGB CONC 32 g/dl (33.0-37.0); MEAN PLATELET VOLUME 10.5 fl (7.4-10.4); MONO # 0.8 (0.1-0.6); MONO % 3.9 % (1.7-9.3); PLATELET COUNT 254 K/mm3 (130-400); RED BLOOD COUNT 4.26 M/mm3 (4.20-5.60); REDCELL DISTRIBUTION WIDTH-CV 12.4 % (11.5-14.5)
[2016-12-23 23:47] LABS: WHITE BLOOD COUNT 20.4 K/mm3 (4.8-10.8)
[2016-12-23 23:51] LABS: CALCIUM 10.2 mg/dL (8.4-10.2); CREATININE, serum 0.63 mg/dL (0.66-1.25); POTASSIUM 3.6 mmol/L (3.4-5.0)
[2016-12-24] VITALS (1162 sets, daily range): BP systolic 95–113; BP diastolic 49–68; PULSE 84–121; TEMP 97–100.4; O2SAT 82–100
[2016-12-24] MEDS ORDERED: VITAMINC1000TA (00:01)
[2016-12-24] MEDS ORDERED: AMBIEN 10MG10 MG PO (00:03)
[2016-12-24] MEDS ORDERED: NATURE'S BLEND M3 MG PO (00:03)
[2016-12-24 05:52] LABS: BASO # 0.1 (0.0-0.2); BASO % 0.4 % (0.0-2.0); EOS # 0.1 (0.0-0.7); EOS % 0.6 % (0-4.0); GRAN # 9.1 (1.4-6.5); GRAN % 75.4 % (42.2-75.2); LYMPH # 2.2 (1.2-3.4); LYMPH % 18.6 % (20.0-51.0); MEAN CELL VOLUME 95 fl (80.0-100.0); MEAN CORPUSCULAR HGB CONC 32 g/dl (33.0-37.0); MEAN PLATELET VOLUME 10.7 fl (7.4-10.4); MONO # 0.6 (0.1-0.6); MONO % 4.7 % (1.7-9.3); PLATELET COUNT 211 K/mm3 (130-400); RED BLOOD COUNT 3.56 M/mm3 (4.20-5.60); REDCELL DISTRIBUTION WIDTH-CV 12.4 % (11.5-14.5)
[2016-12-24 05:57] LABS: HEMATOCRIT 33.7 % (42.0-52.0); HEMOGLOBIN 10.8 g/dl (13.5-18.0); MEAN CORPUSCULAR HEMOGLOBIN 30 pg (27.0-31.0)
[2016-12-24 06:03] LABS: CREATININE, serum 0.57 mg/dL (0.66-1.25); POTASSIUM 4.1 mmol/L (3.4-5.0)
[2016-12-24 12:58] LABS: ADJUSTED CALCIUM 9.6 mg/dL (8.4-10.2); ALBUMIN 3.2 gm/dL (3.5-5.0); BILIRUBIN,TOTAL 0.5 mg/dL (0.0-1.0); MAGNESIUM 1.8 mg/dL (1.6-2.3); PHOSPHOROUS 3.5 mg/dL (2.5-4.5); TOTAL PROTEIN 6.2 gm/dL (6.4-8.2)
[2016-12-24] MEDS ORDERED: SABRIL500 MG/Pac PO (19:35)
[2016-12-25] VITALS (414 sets, daily range): BP systolic 93–122; BP diastolic 50–82; PULSE 90–107; TEMP 97.1–99.5; O2SAT 74–100
[2016-12-26] VITALS (7 sets, daily range): BP systolic 99–119; BP diastolic 66–76; PULSE 67–96; TEMP 96.7–98.7
[2016-12-26 08:33] LABS: BASO % 0.3 % (0.0-2.0); EOS # 0.6 (0.0-0.7); EOS % 10.4 % (0-4.0); GRAN # 2.3 (1.4-6.5); GRAN % 38.7 % (42.2-75.2); LYMPH # 2.4 (1.2-3.4); LYMPH % 41.1 % (20.0-51.0); MEAN CELL VOLUME 95 fl (80.0-100.0); MEAN CORPUSCULAR HGB CONC 32 g/dl (33.0-37.0); MEAN PLATELET VOLUME 10.4 fl (7.4-10.4); MONO # 0.5 (0.1-0.6); MONO % 9.2 % (1.7-9.3); PLATELET COUNT 229 K/mm3 (130-400); RED BLOOD COUNT 3.41 M/mm3 (4.20-5.60); REDCELL DISTRIBUTION WIDTH-CV 12.4 % (11.5-14.5); WHITE BLOOD COUNT 5.9 K/mm3 (4.8-10.8)
[2016-12-26 08:36] LABS: HEMATOCRIT 32.4 % (42.0-52.0); HEMOGLOBIN 10.4 g/dl (13.5-18.0); MEAN CORPUSCULAR HEMOGLOBIN 30 pg (27.0-31.0)
[2016-12-26 08:45] LABS: CALCIUM 9.2 mg/dL (8.4-10.2); CREATININE, serum 0.59 mg/dL (0.66-1.25); MAGNESIUM 1.8 mg/dL (1.6-2.3); PHOSPHOROUS 4.1 mg/dL (2.5-4.5); POTASSIUM 3.8 mmol/L (3.4-5.0)
[2016-12-27 00:04] VITALS: BP 105/62; PULSE 84; TEMP 97.8
[2016-12-27 07:56] VITALS: BP 91/54; PULSE 83; TEMP 97.2
[2016-12-27] MEDS ORDERED: CLEOCIN HC150 MG/CAP PO (11:22)
[2016-12-27] MEDS ORDERED: LEVASOLN PEG (11:24)
[2016-12-27] MEDS ORDERED: REGLAN 10MG/11 MG/ML PO (11:25)
[2017-01-02 13:10] LABS: IGE RECEPTOR AB 4 (())
== END 2016-12-27 12:20 | disposition home or self-care (01) | DRG 189 ==
LOC: COL.ER 22:42 → ICU 12-24 00:07 → MEDICAL 12-25 16:45
PROVIDERS: Emergency Medicine; Internal Medicine Gastroenterology; Internal Medicine Pulmonary Disease; Nurse Practitioner Family
PROC: 0DB78ZX Excision of Stomach, Pylorus, Via Natural or Artificial Opening Endoscopic, Diagnostic (ICD-10-PCS; principal; 2016-12-26 08:00)
DX: J96.01 Acute respiratory failure with hypoxia (principal); J69.0 Pneumonitis due to inhalation of food and vomit; G93.40 Encephalopathy, unspecified; G83.0 Diplegia of upper limbs; G80.9 Cerebral palsy, unspecified; G40.409 Other generalized epilepsy and epileptic syndromes, not intractable, without status epilepticus; R13.10 Dysphagia, unspecified; Z93.1 Gastrostomy status; Z98.1 Arthrodesis status
CPT/HCPCS: 99223-AI; 99232-AI; 99239; C9113; J0456; J0696; J1650; J1956; J2060; J2704; J7030; J7050

== ENCOUNTER → 2017-01-08 | Outpatient (CLI) | payer MEDICAID ==
[~2017-01-08] MED LIST changes: +AMBIEN 10MG10 MG PO; +JEVITY 1.5 CAL237 ML PO; +LEVASOLN PEG; +NATURE'S BLEND M3 MG PO; +REGLAN 10MG/11 MG/ML PO; +VITAMINC1000TA
[2017-01-08 21:13] LABS: HEMATOCRIT 38.6 % (42.0-52.0); HEMOGLOBIN 12.3 g/dl (13.5-18.0); MEAN CELL VOLUME 94 fl (80.0-100.0); MEAN CORPUSCULAR HEMOGLOBIN 30 pg (27.0-31.0); MEAN CORPUSCULAR HGB CONC 32 g/dl (33.0-37.0); MEAN PLATELET VOLUME 10.3 fl (7.4-10.4); PLATELET COUNT 225 K/mm3 (130-400); RED BLOOD COUNT 4.09 M/mm3 (4.20-5.60); REDCELL DISTRIBUTION WIDTH-CV 12.7 % (11.5-14.5); WHITE BLOOD COUNT 8.9 K/mm3 (4.8-10.8)
[2017-01-08 21:24] LABS: ADJUSTED CALCIUM 9.5 mg/dL (8.4-10.2); ALBUMIN 4.1 gm/dL (3.5-5.0); BILIRUBIN,TOTAL 0.4 mg/dL (0.0-1.0); CALCIUM 9.6 mg/dL (8.4-10.2); CREATININE, serum 0.64 mg/dL (0.66-1.25); POTASSIUM 3.9 mmol/L (3.4-5.0); TOTAL PROTEIN 7.2 gm/dL (6.4-8.2)
== END ==
LOC: COL.RAD 20:12
PROVIDERS: Internal Medicine
DX: J18.9 Pneumonia, unspecified organism (principal); R50.9 Fever, unspecified

== ENCOUNTER 2017-03-15 08:46 | Inpatient (IN) | payer MEDICAID ==
[~2017-03-15] VITALS: Ht 172.7 cm; Wt 41.0 kg
[~2017-03-15 08:46] MED LIST changes: -JEVITY 1.5 CAL237 ML PO
[2017-04-05] VITALS (326 sets, daily range): BP systolic 102–129; BP diastolic 58–97; PULSE 80–85; TEMP 97.7–98.8; O2SAT 82–100
[2017-04-05] MEDS ORDERED: JEVITY 1.5 CAL237 ML PO (06:22)
[2017-04-05 15:46] LABS: ADJUSTED CALCIUM 9.4 mg/dL (8.4-10.2); BILIRUBIN,TOTAL 0.5 mg/dL (0.0-1.0); CALCIUM 9.4 mg/dL (8.4-10.2); CREATININE, serum 0.56 mg/dL (0.66-1.25); MAGNESIUM 1.5 mg/dL (1.6-2.3); PHOSPHOROUS 3.9 mg/dL (2.5-4.5); POTASSIUM 4.5 mmol/L (3.4-5.0); TOTAL PROTEIN 6.9 gm/dL (6.4-8.2)
[2017-04-06 00:31] VITALS: BP 113/75; PULSE 80; TEMP 98.2
[2017-04-06 04:00] VITALS: BP 111/66; PULSE 83; TEMP 98.4
[2017-04-06 09:29] VITALS: BP 120/61; PULSE 89; TEMP 97.3
== END 2017-04-06 10:11 | disposition home or self-care (01) | DRG 327 ==
LOC: ICU 04-05 05:49 → INPTSU 04-05 05:49 → SURG 04-05 07:30 → ICU 04-05 10:01 → SURG 04-05 18:20
PROVIDERS: Surgery
PROC: 0DV44ZZ Restriction of Esophagogastric Junction, Percutaneous Endoscopic Approach (ICD-10-PCS; principal; 2017-04-05 07:30)
DX: K21.9 Gastro-esophageal reflux disease without esophagitis (principal); G40.919 Epilepsy, unspecified, intractable, without status epilepticus; G80.1 Spastic diplegic cerebral palsy; E44.0 Moderate protein-calorie malnutrition; Z68.1 Body mass index [BMI] 19.9 or less, adult
CPT/HCPCS: J0690; J1100; J2250; J2270; J2405; J2704; J3010; J7030; J7120

== ENCOUNTER → 2017-05-08 | Outpatient (CLI) | payer MEDICAID ==
[~2017-05-08] MED LIST changes: +JEVITY 1.5 CAL237 ML PO
== END ==
LOC: COL.ER 08:07 → EDSTATUS 08:39
DX: K94.23 Gastrostomy malfunction (principal); G80.9 Cerebral palsy, unspecified
CPT/HCPCS: 26245; B4087

== ENCOUNTER → 2017-09-04 | Outpatient (CLI) | payer MEDICAID | LOC: COL.RAD 12:06 | DX: T17.810A Gastric contents in other parts of respiratory tract causing asphyxiation, initial encounter (principal); G80.9 Cerebral palsy, unspecified; G40.909 Epilepsy, unspecified, not intractable, without status epilepticus | CPT/HCPCS: G8996-GN; G8997-GN; G8998-GN ==

== ENCOUNTER 2018-01-09 19:51 | Emergency (ER) | payer MEDICAID ==
[2018-01-09 19:55] VITALS: BP 116/70; TEMP 98
[2018-01-09 20:06] VITALS: PULSE 84
== END 2018-01-09 21:20 | disposition home or self-care (01) ==
LOC: COL.ER 19:51
DX: S00.03XA Contusion of scalp, initial encounter (principal); X58.XXXA Exposure to other specified factors, initial encounter; Y92.009 Unspecified place in unspecified non-institutional (private) residence as the place of occurrence of the external cause

== ENCOUNTER → 2018-01-17 | Outpatient (CLI) | payer MEDICAID ==
[2018-01-17 15:30] LABS: BASO % 0.3 % (0.0-2.0); EOS # 0.1 (0.0-0.7); GRAN # 4.6 (1.4-6.5); GRAN % 57.8 % (42.2-75.2); HEMATOCRIT 41.6 % (42.0-52.0); HEMOGLOBIN 14.1 g/dl (13.5-18.0); LYMPH # 2.7 (1.2-3.4); LYMPH % 34.6 % (20.0-51.0); MEAN CELL VOLUME 96 fl (80.0-100.0); MEAN CORPUSCULAR HEMOGLOBIN 33 pg (27.0-31.0); MEAN CORPUSCULAR HGB CONC 34 g/dl (33.0-37.0); MEAN PLATELET VOLUME 10.6 fl (7.4-10.4); MONO # 0.5 (0.1-0.6); MONO % 6.2 % (1.7-9.3); PLATELET COUNT 200 K/mm3 (130-400); RED BLOOD COUNT 4.34 M/mm3 (4.20-5.60)
[2018-01-17 15:41] LABS: ALBUMIN 4.3 gm/dL (3.5-5.0); BILIRUBIN,TOTAL 0.5 mg/dL (0.0-1.0); CREATININE, serum 0.65 mg/dL (0.66-1.25); POTASSIUM 4.4 mmol/L (3.4-5.0); TOTAL PROTEIN 8.3 gm/dL (6.4-8.2)
== END ==
LOC: COL.LAB 14:46
PROVIDERS: Psychiatry & Neurology Neurology
DX: G40.209 Localization-related (focal) (partial) symptomatic epilepsy and epileptic syndromes with complex partial seizures, not intractable, without status epilepticus (principal)

== ENCOUNTER 2018-06-02 11:35 | Emergency (ER) | payer MEDICAID ==
[~2018-06-02] VITALS: Ht 177.8 cm; Wt 50.0 kg
[2018-06-02 11:38] VITALS: TEMP 97.9
[2018-06-02 12:06] LABS: BASO % 0.2 % (0.0-2.0); EOS # 0.4 (0.0-0.7); EOS % 3.6 % (0-4.0); GRAN # 6.5 (1.4-6.5); GRAN % 67.7 % (42.2-75.2); HEMATOCRIT 38.2 % (42.0-52.0); HEMOGLOBIN 13.1 g/dl (13.5-18.0); LYMPH # 1.8 (1.2-3.4); LYMPH % 19.1 % (20.0-51.0); MEAN CELL VOLUME 91 fl (80.0-100.0); MEAN CORPUSCULAR HEMOGLOBIN 31 pg (27.0-31.0); MEAN CORPUSCULAR HGB CONC 34 g/dl (33.0-37.0); MONO # 0.9 (0.1-0.6); MONO % 9.2 % (1.7-9.3); PLATELET COUNT 116 K/mm3 (130-400); REDCELL DISTRIBUTION WIDTH-CV 12.9 % (11.5-14.5)
[2018-06-02 12:16] LABS: ALBUMIN 4.1 gm/dL (3.5-5.0); BILIRUBIN,TOTAL 0.3 mg/dL (0.0-1.0); CALCIUM 9.3 mg/dL (8.4-10.2); CREATININE, serum 0.73 mg/dL (0.66-1.25); POTASSIUM 3.7 mmol/L (3.4-5.0); TOTAL PROTEIN 7.7 gm/dL (6.4-8.2)
[2018-06-02] MEDS ORDERED: IPRATROPIUM BROM3 M1 IH (12:46)
[2018-06-02] MEDS ORDERED: AZITHROMYC200 MG/5 M PEG (12:47)
[2018-06-02 13:35] VITALS: BP 119/83; PULSE 95
== END 2018-06-02 13:38 | disposition home or self-care (01) ==
LOC: COL.ER 11:35
PROVIDERS: Family Medicine
DX: J18.1 Lobar pneumonia, unspecified organism (principal); J40 Bronchitis, not specified as acute or chronic; G40.909 Epilepsy, unspecified, not intractable, without status epilepticus
CPT/HCPCS: A4216; J0696; J7030

== ENCOUNTER 2018-12-28 22:26 | Inpatient (IN) | payer MEDICAID ==
[~2018-12-28] VITALS: Ht 172.7 cm; Wt 66.6 kg
[~2018-12-28 22:26] MED LIST changes: +AZITHROMYC200 MG/5 M PEG; -TUMS SMOOTHIES750 M1; +TUMS SMOOTHIES750 M1 PO; -VITAMINC1000TA; +VITAMINC1000TA PO
[2018-12-28 23:35] LABS: BASO % 0.1 % (0.0-2.0); EOS % 0.5 % (0-4.0); GRAN # 6.1 (1.4-6.5); GRAN % 74.6 % (42.2-75.2); HEMATOCRIT 41.4 % (42.0-52.0); HEMOGLOBIN 13.6 g/dl (13.5-18.0); LYMPH # 1.6 (1.2-3.4); LYMPH % 19.3 % (20.0-51.0); MEAN CELL VOLUME 95 fl (80.0-100.0); MEAN CORPUSCULAR HEMOGLOBIN 31 pg (27.0-31.0); MEAN CORPUSCULAR HGB CONC 33 g/dl (33.0-37.0); MEAN PLATELET VOLUME 10.6 fl (7.4-10.4); MONO # 0.4 (0.1-0.6); MONO % 5.3 % (1.7-9.3); PLATELET COUNT 180 K/mm3 (130-400); RED BLOOD COUNT 4.34 M/mm3 (4.20-5.60); REDCELL DISTRIBUTION WIDTH-CV 12.1 % (11.5-14.5)
[2018-12-28 23:51] LABS: ALBUMIN 4.2 gm/dL (3.5-5.0); BILIRUBIN,TOTAL 0.2 mg/dL (0.0-1.0); C-REACTIVE PROTEIN 1.4 mg/dL (0.0-0.9); CALCIUM 9.6 mg/dL (8.4-10.2); CREATININE, serum 0.61 (0.66-1.25); MAGNESIUM 1.9 mg/dL (1.6-2.3); TOTAL PROTEIN 7.6 gm/dL (6.4-8.2)
[2018-12-29] VITALS (1310 sets, daily range): BP systolic 87–115; BP diastolic 47–88; PULSE 97–115; TEMP 97.8–102.3; O2SAT 76–100
--- NOTE | 2018-12-29 05:15 | NUR ---
Bedside report received from JAY JAY Darling.
--- NOTE | 2018-12-29 07:30 | NUR ---
Assessment complete, patient resting in bed, on 7L/OM, dad at bedside keeping OM on patient. Sorin button clamped. NS infusing to PAC. Fall precautions in place.
[2018-12-29 07:41] LABS: BASO % 0.2 % (0.0-2.0); EOS % 0.3 % (0-4.0); HEMATOCRIT 37.1 % (42.0-52.0); HEMOGLOBIN 12.3 g/dl (13.5-18.0); LYMPH # 1.1 (1.2-3.4); LYMPH % 16.1 % (20.0-51.0); MEAN CELL VOLUME 94 fl (80.0-100.0); MEAN CORPUSCULAR HEMOGLOBIN 31 pg (27.0-31.0); MEAN CORPUSCULAR HGB CONC 33 g/dl (33.0-37.0); MEAN PLATELET VOLUME 10.7 fl (7.4-10.4); MONO # 0.5 (0.1-0.6); MONO % 8.2 % (1.7-9.3); PLATELET COUNT 152 K/mm3 (130-400); RED BLOOD COUNT 3.93 M/mm3 (4.20-5.60)
[2018-12-29 08:01] LABS: ALBUMIN 3.5 gm/dL (3.5-5.0); BILIRUBIN,TOTAL 0.2 mg/dL (0.0-1.0); CALCIUM 8.9 mg/dL (8.4-10.2); CREATININE, serum 0.65 (0.66-1.25); POTASSIUM 4.3 mmol/L (3.4-5.0); TOTAL PROTEIN 6.5 gm/dL (6.4-8.2)
[2018-12-29 08:30] LABS: INR 1.2 (0.8-3.0); PROTHROMBIN TIME 13.3 SECONDS (9.7-12.8)
[2018-12-29] MEDS ORDERED: CALCIUM CITRAT200 M2 PEG (09:57)
[2018-12-29 09:58] LABS: ARTERIAL BLD GAS O2 SATURATION 91.9 % (92-100); ARTERIAL BLD GAS TCO2 CT 24.3; ARTERIAL BLOOD GAS BASE EXCESS -1.2 (-2-2); ARTERIAL BLOOD GAS HCO3 23.1 meq/L (22-26); ARTERIAL BLOOD GAS PCO2 37.3 mmHg (35-45); ARTERIAL BLOOD GAS PO2 63.1 mmHg (80-100); ARTERIAL BLOOD GAS pH 7.41 (7.35-7.45)
--- NOTE | 2018-12-29 13:22 | NUR ---
SW attended clinical rounds to discuss discharge planning. Patient's mother was present and answered all of the doctors questions due to patient being mentally disabled. Patient lives at home with his mom. Patient's mother is a PA. Patient's PCP is Dr Wells and they obtains prescriptions from [facility]. Patient has a nurse 40 hours a week and is care for by his mom outside of those 40 hours. Patient has a wheelchair for mobility, supplies for his peg tube through [facility] and also home oxygen. SW will continue to follow as needed.
--- NOTE | 2018-12-29 14:13 | NUR ---
O2 decreased to 6L/OM, sats 94%. Mom at bedside.
--- NOTE | 2018-12-29 16:00 | NUR ---
Assessment complete, patient awakens easily to stimul, mom at bedside, bed alarm on, fall precautions in place.
--- NOTE | 2018-12-29 19:03 | NUR ---
Bedside report given to JAY JAY Darling.
--- NOTE | 2018-12-29 19:38 | NUR ---
Patient assessment completed and charted at this time, please see documentation for details. Patient in bed, family at bedside, all questions and concerns addressed at this time. Herminia, patient mother, administered medications and PEG feeding with RN observing, no issues to report. Will continue to monitor.
[2018-12-30] VITALS (1400 sets, daily range): BP systolic 92–111; BP diastolic 58–68; PULSE 86–115; TEMP 98.8–101.2; O2SAT 69–100
--- NOTE | 2018-12-30 04:10 | NUR ---
Patient SPO2 at 79% on 4L via OM at this time after nurse was turning. Patient attempting to clear secretions, unsuccessful at this time. This nurse and patient mother attempted to suction patient, minimal success. Turned patient all the way over on left side, SPO2 increased to 94% back down to 4L via OM. Will continue to monitor.
[2018-12-30 06:12] LABS: HEMOGLOBIN 11.4 g/dl (13.5-18.0); MEAN CELL VOLUME 96 fl (80.0-100.0); MEAN CORPUSCULAR HEMOGLOBIN 31 pg (27.0-31.0); MEAN CORPUSCULAR HGB CONC 32 g/dl (33.0-37.0); MEAN PLATELET VOLUME 11.1 fl (7.4-10.4); PLATELET COUNT 144 K/mm3 (130-400); RED BLOOD COUNT 3.65 M/mm3 (4.20-5.60); REDCELL DISTRIBUTION WIDTH-CV 12.1 % (11.5-14.5)
[2018-12-30 06:15] LABS: HEMATOCRIT 35.2 % (42.0-52.0)
[2018-12-30 06:21] LABS: INR 1.3 (0.8-3.0); PROTHROMBIN TIME 14.2 SECONDS (9.7-12.8)
[2018-12-30 06:24] LABS: ALBUMIN 3.1 gm/dL (3.5-5.0); BILIRUBIN,TOTAL 0.2 mg/dL (0.0-1.0); CALCIUM 8.8 mg/dL (8.4-10.2); CREATININE, serum 0.66 (0.66-1.25); POTASSIUM 3.9 mmol/L (3.4-5.0); TOTAL PROTEIN 6.1 gm/dL (6.4-8.2)
--- NOTE | 2018-12-30 07:15 | NUR ---
Report received from JAY JAY Darling.
[2018-12-30 07:28] LABS: BAND 29 % (0-10); BASOPHIL 1 % (0-2); EOSINOPHIL 6 % (0-4); LYMPHOCYTE 22 % (20.0-51.0); MYELOCYTE 3 % (0-0); NEUTROPHILS 38 % (42.0-75.2)
[2018-12-30 07:29] LABS: PLATELET ESTIMATE NORMAL (NORMAL)
--- NOTE | 2018-12-30 07:45 | NUR ---
Assessment complete, patient resting in bed, bed alarm on, fall precautions in place. Dr. Ramirez at bedside, NS decreased to 60ml/hr.
--- NOTE | 2018-12-30 08:15 | NUR ---
Dad gives patient tube feeding.
--- NOTE | 2018-12-30 09:40 | NUR ---
OT here to work with patient.
--- NOTE | 2018-12-30 10:23 | NUR ---
Patient awake, vocalizing sounds. Dad at bedside.
--- NOTE | 2018-12-30 11:31 | NUR ---
PT in working with patient.
--- NOTE | 2018-12-30 16:30 | NUR ---
Patient resting quietly, mom at bedside.
--- NOTE | 2018-12-30 18:56 | NUR ---
Bedside report given to JAY JAY Darling.
[2018-12-31] VITALS (1314 sets, daily range): BP systolic 93–121; BP diastolic 40–90; PULSE 90–102; TEMP 97–98.5; O2SAT 59–100
[2018-12-31 05:58] LABS: BASO % 0.2 % (0.0-2.0); EOS # 0.2 (0.0-0.7); EOS % 3.7 % (0-4.0); GRAN # 3.4 (1.4-6.5); GRAN % 52.4 % (42.2-75.2); HEMOGLOBIN 10.5 g/dl (13.5-18.0); LYMPH # 2.2 (1.2-3.4); LYMPH % 34.5 % (20.0-51.0); MEAN CELL VOLUME 96 fl (80.0-100.0); MEAN CORPUSCULAR HEMOGLOBIN 32 pg (27.0-31.0); MEAN CORPUSCULAR HGB CONC 33 g/dl (33.0-37.0); MEAN PLATELET VOLUME 10.9 fl (7.4-10.4); MONO # 0.6 (0.1-0.6); MONO % 8.7 % (1.7-9.3); PLATELET COUNT 148 K/mm3 (130-400); RED BLOOD COUNT 3.33 M/mm3 (4.20-5.60); REDCELL DISTRIBUTION WIDTH-CV 12.1 % (11.5-14.5)
[2018-12-31 05:59] LABS: HEMATOCRIT 32.1 % (42.0-52.0)
[2018-12-31 06:01] LABS: INR 1.1 (0.8-3.0); PROTHROMBIN TIME 12.9 SECONDS (9.7-12.8)
[2018-12-31 06:09] LABS: BILIRUBIN,TOTAL 0.2 mg/dL (0.0-1.0); CALCIUM 8.5 mg/dL (8.4-10.2); CREATININE, serum 0.68 (0.66-1.25); POTASSIUM 3.6 mmol/L (3.4-5.0); TOTAL PROTEIN 5.9 gm/dL (6.4-8.2)
--- NOTE | 2018-12-31 07:15 | NUR ---
Bedside report completed with JAY JAY Darling. Patient's father at the bedside. Plan of care reviewed. Currently on 4L O2 via oxymask. Care assumed at this time.
--- NOTE | 2018-12-31 09:00 | NUR ---
Dr. Ramirez orders thoracentesis. Ultrasound notified. Consent printed. Will obtain consent from Patient's father and mother.
--- NOTE | 2018-12-31 09:30 | NUR ---
No thoracentesis performed at this time. Dr. Alexandre used ultrasound to evaluate the patient. He states that there isn't any fluid to pull from the patient. Parent's in the room at this time and verbalize understanding. Plan is to proceed tomorrow AM with bronchoscopy with Anesthesia at the bedside.
--- NOTE | 2018-12-31 14:27 | NUR ---
Patient continues to rest comfortably. O2 requirements have decrease to 2L/min via oxymask. VS WNL. Will continue to monitor.
--- NOTE | 2018-12-31 19:10 | NUR ---
Bedside report received from Ashlee GOYAL. Pts mother Herminia at bedside. Pt resting in bed with television on and eyes intermittently open and closed.
[2019-01-01] VITALS (598 sets, daily range): BP systolic 107–124; BP diastolic 66–81; PULSE 76–93; TEMP 98.1–99.8; O2SAT 55–100
[2019-01-01 04:58] LABS: BASO % 0.2 % (0.0-2.0); EOS # 0.3 (0.0-0.7); EOS % 4.8 % (0-4.0); GRAN # 2.5 (1.4-6.5); GRAN % 48.4 % (42.2-75.2); HEMATOCRIT 31.2 % (42.0-52.0); HEMOGLOBIN 10.2 g/dl (13.5-18.0); LYMPH # 1.9 (1.2-3.4); LYMPH % 37.5 % (20.0-51.0); MEAN CELL VOLUME 95 fl (80.0-100.0); MEAN CORPUSCULAR HEMOGLOBIN 31 pg (27.0-31.0); MEAN CORPUSCULAR HGB CONC 33 g/dl (33.0-37.0); MEAN PLATELET VOLUME 10.6 fl (7.4-10.4); MONO # 0.5 (0.1-0.6); MONO % 8.7 % (1.7-9.3); PLATELET COUNT 170 K/mm3 (130-400); RED BLOOD COUNT 3.27 M/mm3 (4.20-5.60)
[2019-01-01 05:03] LABS: INR 1.1 (0.8-3.0); PROTHROMBIN TIME 12.7 SECONDS (9.7-12.8)
[2019-01-01 05:08] LABS: ALBUMIN 3.1 gm/dL (3.5-5.0); BILIRUBIN,TOTAL 0.3 mg/dL (0.0-1.0); CALCIUM 8.6 mg/dL (8.4-10.2); CREATININE, serum 0.62 (0.66-1.25); POTASSIUM 3.4 mmol/L (3.4-5.0)
[2019-01-01 05:51] LABS: ARTERIAL BLD GAS O2 SATURATION 93.3 % (92-100); ARTERIAL BLD GAS TCO2 CT 26.7; ARTERIAL BLOOD GAS BASE EXCESS 1.5 (-2-2); ARTERIAL BLOOD GAS HCO3 25.6 meq/L (22-26); ARTERIAL BLOOD GAS PCO2 38.5 mmHg (35-45); ARTERIAL BLOOD GAS PO2 71.8 mmHg (80-100); ARTERIAL BLOOD GAS pH 7.44 (7.35-7.45)
--- NOTE | 2019-01-01 07:20 | NUR ---
Bedside report recieved from Saray GOYAL. Dad at bedside for report as well. Patient sleeping at this time. Needs met.
--- NOTE | 2019-01-01 07:20 | NUR ---
Bedside report provided to Jeni Dc RN. Pt resting in bed with eyes closed, father at bedside and an active participant in report.
--- NOTE | 2019-01-01 08:12 | NUR ---
Time out done for Bronchoscopy. POULTRY HANGER, Endo RNx2, veterinary technician assistant, Dr. Ramirez and this RN all in agreement. Procedure start at 08. Specimens collected and will send to lab. Procedure end time 820. POULTRY HANGER with patient. 821 recieved report from Claudio Velasco CRNA. Patient sleeping at this time. VSS
--- NOTE | 2019-01-01 10:15 | NUR ---
Patient will likely discharge home today. Patient is already set up with nursing care and he will resume those services once he is discharged.
[2019-01-01] MEDS ORDERED: CIPRO 500M500 MG/5 M PO (13:43)
--- NOTE | 2019-01-01 14:15 | NUR ---
Discharge instructions and medications reviewed with mother by Siddharth Sue RN. Denies questions or concerns. Discharged to home POV with mom.
== END 2019-01-01 14:15 | disposition home or self-care (01) | DRG 871 ==
LOC: COL.ER 22:26 → ICU 12-29 00:43
PROVIDERS: Emergency Medicine; Internal Medicine Pulmonary Disease; Nurse Practitioner Family; ADMIT Family Medicine
PROC: 0B958ZX Drainage of Right Middle Lobe Bronchus, Via Natural or Artificial Opening Endoscopic, Diagnostic (ICD-10-PCS; 2019-01-01)
PROC: 0B968ZX Drainage of Right Lower Lobe Bronchus, Via Natural or Artificial Opening Endoscopic, Diagnostic (ICD-10-PCS; 2019-01-01)
PROC: 0B948ZX Drainage of Right Upper Lobe Bronchus, Via Natural or Artificial Opening Endoscopic, Diagnostic (ICD-10-PCS; principal; 2019-01-01 08:00)
DX: A41.9 Sepsis, unspecified organism (principal); J69.0 Pneumonitis due to inhalation of food and vomit; J96.01 Acute respiratory failure with hypoxia; J90 Pleural effusion, not elsewhere classified; R65.20 Severe sepsis without septic shock; G80.9 Cerebral palsy, unspecified; Z93.1 Gastrostomy status; G40.909 Epilepsy, unspecified, not intractable, without status epilepticus; M41.9 Scoliosis, unspecified; K27.7 Chronic peptic ulcer, site unspecified, without hemorrhage or perforation
CPT/HCPCS: 99222-AI; 99232-AI; 99239; J1650; J2060; J2543; J2704; J3480; J7030; J7120

== ENCOUNTER 2020-04-24 09:39 | Inpatient (IN) | payer MEDICAID ==
[2020-04-24] VITALS (266 sets, daily range): BP systolic 88–103; BP diastolic 53–62; PULSE 87–102; TEMP 97.3–99.9; O2SAT 76–100
[~2020-04-24] VITALS: Ht 172.7 cm; Wt 64.3 kg
[~2020-04-24 09:39] MED LIST changes: -ATIVAN 1MG T1 MG/TAB; +ATIVAN 1MG T1 MG/TAB PEG; +CALCIUM CITRAT200 M2 PEG; +CIPRO 500M500 MG/5 M PO; -MIDAZOLAM NAS; +MIDAZOLAM PEG; -ONFI 20MG PO; +ONFI2.5 MG/ML PEG; +VIMPAT10 MG/M1 PEG; -VIMPAT200 MG; +VITAMINC1000TA PEG; -VITAMINC1000TA PO
[2020-04-24 10:05] LABS: BASO % 0.2 % (0.0-2.0); EOS # 0.1 (0.0-0.7); EOS % 0.8 % (0-4.0); GRAN # 11.2 (1.4-6.5); GRAN % 84.6 % (42.2-75.2); HEMATOCRIT 43.1 % (42.0-52.0); HEMOGLOBIN 14.3 g/dl (13.5-18.0); LYMPH # 1.1 (1.2-3.4); LYMPH % 8.6 % (20.0-51.0); MEAN CELL VOLUME 94 fl (80.0-100.0); MEAN CORPUSCULAR HEMOGLOBIN 31 pg (27.0-31.0); MEAN CORPUSCULAR HGB CONC 33 g/dl (33.0-37.0); MEAN PLATELET VOLUME 10.6 fl (7.4-10.4); MONO # 0.7 (0.1-0.6); MONO % 5.4 % (1.7-9.3); PLATELET COUNT 205 K/mm3 (130-400); RED BLOOD COUNT 4.57 M/mm3 (4.20-5.60); REDCELL DISTRIBUTION WIDTH-CV 12.3 % (11.5-14.5)
[2020-04-24 10:11] LABS: ARTERIAL BLD GAS O2 SATURATION 93.7 % (92-100); ARTERIAL BLOOD GAS BASE EXCESS -2.2 (-2-2); ARTERIAL BLOOD GAS HCO3 23.6 meq/L (22-26); ARTERIAL BLOOD GAS PCO2 44.3 mmHg (35-45); ARTERIAL BLOOD GAS PO2 72.8 mmHg (80-100); ARTERIAL BLOOD GAS pH 7.35 (7.35-7.45)
[2020-04-24 10:16] LABS: ALBUMIN 4.6 gm/dL (3.5-5.0); BILIRUBIN,TOTAL 0.3 mg/dL (0.0-1.0); CALCIUM 9.6 mg/dL (8.4-10.2); CREATININE, serum 0.91 (0.66-1.25); MAGNESIUM 1.6 mg/dL (1.6-2.3); TOTAL PROTEIN 7.7 gm/dL (6.4-8.2)
[2020-04-24 10:25] LABS: COLLECTION METHOD CLEAN CATCH
[2020-04-24 10:42] LABS: MUCOUS Present /lpf; PH 5 (5-8); SQUAMOUS EPITHELIAL None Seen /hpf; URINE APPEARANCE Hazy; URINE BACTERIA Rare /hpf; URINE BILIRUBIN Negative (NEGATIVE); URINE BLOOD Negative (NEGATIVE); URINE COLOR Yellow; URINE GLUCOSE Negative (NEGATIVE); URINE KETONE Negative (NEGATIVE); URINE LEUKOCYTE ESTERASE Negative (NEGATIVE); URINE NITRATE Negative (NEGATIVE); URINE PROTEIN(semi-quant) 2+ (NEGATIVE); URINE RBC 0-2 /hpf; URINE UROBILINOGEN Negative (NEGATIVE)
[2020-04-24] MEDS ORDERED: EPIDIOLEX100 MG/1 M PEG (10:45)
--- NOTE | 2020-04-24 14:15 | NUR ---
Patient found to be satting 85% O2 on 3L of oxygen via NC and SBP were in the 70's with Maps of 50's. called and notified. He ordered a 500ml bolus of NS and pateint soon recovered both sats and BP's back to baseline.
--- NOTE | 2020-04-24 14:21 | NUR ---
SPO2 8 5-89% ON 4 LPM NC PLACED ON OXYMASK AT 15 LPM 93% RN BESIDE
[2020-04-24] MEDS ORDERED: IRON PEG (15:10)
[2020-04-25] VITALS (396 sets, daily range): BP systolic 85–94; BP diastolic 53–67; PULSE 86–90; TEMP 97.5–99; O2SAT 80–100
--- NOTE | 2020-04-25 06:00 | NUR ---
Patient has been resting comfortably. No signs of pain. No seizures throughout the night. Patient has been getting repositioned every 2 hours. No current needs at this time. Will send medications to pharmacy when they get here.
--- NOTE | 2020-04-25 07:27 | NUR ---
Bedside report given to JAY JAY Stoll
--- NOTE | 2020-04-25 11:33 | NUR ---
Called patients mother, Herminia, to notify her that the patient will be able to discharge home and gave verbal consent that Patsy, the home health nurse, has permission to sign discharge papers and take the patient home in her private vehicle.
--- NOTE | 2020-04-25 11:56 | NUR ---
Frame Builder met with patient and patient's home RN, Patsy to discuss discharge planning. Patient is non verbal so Patsy answered intake questions. Patsy advised she is very familiar with patient. Patient lives in [place] with his parents Herminia (ph#[phone]) and Shahbaz (ph#[phone]), who are also his legal guardians. Patient sees Dr. Wells for primary care and has medications delivered from [facility]. Patient has 83 hours a week of in home nursing and 40 hours per week of personal care services. Patient has all medications administered to him by his parents or by his client application support engineer. Patient uses a wheelchair for ambulation and receives home oxygen and PEG tube supplies through [facility]. Patient requires assistance with all ADLS which are provided by family or paid client application support engineer. Patsy reports that patient's parents purchased a battery powered suction machine that they can take with them out and about. Patient will return home upon discharge with his parents. PAVITHRA contacted patient's mother, Herminia to review discharge plan. Herminia advised that patient has two case specialist involved in his care. Sveta Helton with [employer] and Su Vargas through [employer]. Herminia advised that plan is for patient to return home at discharge and that she will provide verbal or written consent for Patsy to provide transportation home for patient. No additional needs at this time.
== END 2020-04-25 12:35 | disposition home or self-care (01) | DRG 100 ==
LOC: COL.ER 09:39 → ICU 10:54
PROVIDERS: Emergency Medicine
DX: G40.811 Lennox-Gastaut syndrome, not intractable, with status epilepticus (principal); A41.9 Sepsis, unspecified organism; D72.829 Elevated white blood cell count, unspecified; Z20.828 Contact with and (suspected) exposure to other viral communicable diseases; Z98.1 Arthrodesis status; Z87.820 Personal history of traumatic brain injury
CPT/HCPCS: 99223-AI; J1644; J1953; J7030; Q9967

== ENCOUNTER → 2021-06-15 | Outpatient (CLI) | payer MEDICAID ==
[~2021-06-15] MED LIST changes: +EPIDIOLEX100 MG/1 M PEG; +IRON PEG
[2021-06-15 12:19] VITALS: BP 109/81; PULSE 77; TEMP 97.7
== END ==
LOC: COL.RAD 11:49
DX: J69.0 Pneumonitis due to inhalation of food and vomit (principal); T17.918A Gastric contents in respiratory tract, part unspecified causing other injury, initial encounter; Z95.828 Presence of other vascular implants and grafts
CPT/HCPCS: J2704

== ENCOUNTER 2022-05-11 06:10 | Inpatient (IN) | payer MEDICAID ==
[2022-05-11] VITALS (300 sets, daily range): BP systolic 96–111; BP diastolic 56–63; PULSE 107–112; TEMP 98.1–102.4; O2SAT 60–100
[~2022-05-11] VITALS: Ht 172.7 cm; Wt 59.7 kg
[2022-05-11 06:55] LABS: BASO % 0.2 % (0.0-2.0); GRAN # 6.4 K/mm3 (1.4-6.5); GRAN % 76.1 % (42.2-75.2); HEMATOCRIT 41.5 % (42.0-52.0); HEMOGLOBIN 14.3 g/dl (13.5-18.0); LYMPH # 0.7 K/mm3 (1.2-3.4); LYMPH % 8.7 % (20.0-51.0); MEAN CELL VOLUME 94 fl (80.0-100.0); MEAN CORPUSCULAR HEMOGLOBIN 32 pg (27-31); MEAN CORPUSCULAR HGB CONC 35 g/dl (33.0-37.0); MEAN PLATELET VOLUME 11.3 fl (7.4-10.4); MONO # 1.2 K/mm3 (0.1-0.6); MONO % 14.8 % (1.7-9.3); PLATELET COUNT 208 K/mm3 (130-400); RED BLOOD COUNT 4.43 M/mm3 (4.20-5.60); REDCELL DISTRIBUTION WIDTH-CV 12.3 % (11.5-14.5)
[2022-05-11 07:13] LABS: ALBUMIN 4.1 gm/dL (3.5-5.0); BILIRUBIN,TOTAL 0.7 mg/dL (0.2-1.2); CALCIUM 10.6 mg/dL (8.4-10.2); CREATININE, serum 1.28 mg/dL (0.72-1.25); POTASSIUM 4.9 mmol/L (3.5-4.5); TOTAL PROTEIN 7.9 gm/dL (6.2-8.1)
[2022-05-11 08:12] LABS: COLLECTION METHOD CLEAN CATCH
[2022-05-11 08:30] LABS: MUCOUS Present (NOT PRESENT); SQUAMOUS EPITHELIAL None Seen /hpf (0-10); URINE BACTERIA Rare /hpf (NONE SEEN)
[2022-05-11 08:31] LABS: PH 6.5 (5.0-8.5); URINE APPEARANCE Cloudy (CLEAR/HAZY); URINE BLOOD Negative (NEGATIVE); URINE COLOR Yellow (YELLOW); URINE GLUCOSE Negative (NEGATIVE); URINE KETONE TRACE (NEGATIVE); URINE NITRATE Negative (NEGATIVE); URINE PROTEIN(semi-quant) Negative (NEGATIVE); URINE UROBILINOGEN 0.2 E.U/dL (0.2-1.0)
[2022-05-11] MEDS ORDERED: ATIVAN 0.50.5 MG/TAB PO (12:06)
[2022-05-11] MEDS ORDERED: PROLIA60 MG/ML SQ (12:07)
[2022-05-11] MEDS ORDERED: MASON NATURAL2000 IU PO (12:08)
--- NOTE | 2022-05-11 13:45 | NUR ---
Patient came to the unit by bed, alert but not able to communicate. tachycardic. Getting O2 via oxymask 10 L. Suction started PRN. Family at the bedside. On seizure precautions. Problems breathing r/t sputum production. Assessment completed, continue monitoring.
--- NOTE | 2022-05-11 15:21 | NUR ---
Vancomycin Initial Dosing Pharmacy Note Ordering provider: Bhavin Santacruz MD Indication/duration: ASPIRATION PNA LABS: WBC 8.4, SCR 1.3, CRCL 69 Recommendation: VANCOMYCIN 15 MG/KG Loading dose: 1.5 grams Maintenance dose: 1 gram every 12 hours Trough goal: 15 ug/mL. TROUGH IF CLINICALLY INDICATED
--- NOTE | 2022-05-11 16:11 | NUR ---
Report given to Ana Maria GOYAL.
--- NOTE | 2022-05-11 16:50 | NUR ---
REPORT RECIEVED FROM DONALD GOYAL. UPON ENTERING ROOM, PATIENT RESTING WITH NO ISSUES. THIS RN TOOK OFF MITTS D/T PATIENT BEING CALM, NO LONGER ATTEMPTING TO PULL OFF OXYGEN. TUBE FEED GIVEN PER ORDER. PATIENTS TINWARE LITHOGRAPH PRESS OPERATOR IN THE ROOM REQUESTED O2 BE CHECKED, BECAUSE SHE WOULD LIKE TO SEE IF HE COULD BE "TAKEN OFF OR LOWERED." ONCE O2 SAT ON , RAEDINGS OF 75-82 GIVEN. INCREASED O2 AND TRIED DIFFERENT O2. CALL PLACED TO RT. INCREASED O2 TO 15L WITH NO IMPROVEMENT. PT DROPPED TO 64% SAT AT LOWEST. RT CALLED FOR AIRVO TO BE BROUGHT UP.
--- NOTE | 2022-05-11 17:00 | NUR ---
CALLED TO PT ROOM. UNABLE TO GET ACCURATE SPO2. USED EAR PROBE 75% ON 11 LPM OXYMASK. INCREASED TO 15 LPM. SPO2 82%. PLACED PT ON AIRVO 88% 50L. SPO2 93%. RN BESIDE. ORDERS TO MOVE TO ICU.
--- NOTE | 2022-05-11 17:06 | NUR ---
CALL PLACED TO HOSPITALIST REQUESTED BY RT.INFORMED DR MARSHALL THAT LUIS IS BEING BROUGHT UP. HE STATED HE WOULD LIKE PATIENT TRANSFERED TO ICU. CHARGE NURSE INFORMED. PHYSICIAN CALLED BACK AND INFORMED HIM PATIENT HAD TO BE PLACED ON 50L WITH 88%. HE GAVE A VERBAL ORDER TO STOP FEEDINGS UNTIL FURTHER NOTICE.
[2022-05-11 17:15] LABS: MAGNESIUM 1.7 mg/dL (1.6-2.6); PHOSPHOROUS 2.4 mg/dL (2.3-4.7)
--- NOTE | 2022-05-11 17:30 | NUR ---
BEDSIDE REPORT GIVEN IN ICU ROOM 7 TO JENNIE GOYAL. INCLUDED VERBAL ORDER FROM DR MARSHALL TO HOLD FEEDS.
--- NOTE | 2022-05-11 17:45 | NUR ---
PT ARRIVED FROM MEDICAL FLOOR TO ICU RM 7 AT THIS TIME. MELVIRN REPORTS PT'S SPO2 IN 60'S PRIOR TO PT BEING TRANSFERED TO ICU, SO PT TRANSFERED EMERGENTLY. UPON ARRIVING TO ICU PT'S SPO2 MID 80'S ON AIRVO. NASOPHARYNGEAL SUCTIONS PERFORMED BY RT. COPIOUS AMOUNTS OF THICK WHITISH DELAROSA SPUTUM SUCTIONED. AFTER SUCTIONING PT'S SPO2 IMPROVED TO MID 90'S. HOSPITALIST AND FAMILY INITIALLY ASKING THAT PT BE INTUBATED. ABG PERFORMED AND REVIEWED BY DR. MCMILLAN. DR. MCMILLAN DETERMINED THAT PT DOES NOT REQUIRE INTUBATION AT THIS TIME, BUT MAY LIKELY REQUIRE IT SOMETIME DURING THE NIGHT. PLAN IS TO MONITOR PT THROUGHOUT NIGHT AND KEEP HIM ON AIRVO. IF VITALS BECOME UNSTABLE AND PT HAS INCREASED RESPIRATORY EFFORT THEN PROCEED WITH INTUBATION. PLAN OF CARE DISCUSSED WITH PT'S MOTHER. PT'S MOTHER AGREES WITH PLAN.
[2022-05-11 17:48] LABS: ARTERIAL BLD GAS O2 SATURATION 92.8 % (92-100); ARTERIAL BLD GAS TCO2 CT 25.8; ARTERIAL BLOOD GAS BASE EXCESS 0.1 (-2-2); ARTERIAL BLOOD GAS HCO3 24.6 meq/L (22-26); ARTERIAL BLOOD GAS PCO2 39.2 mmHg (35-45); ARTERIAL BLOOD GAS PO2 64.3 mmHg (80-100); ARTERIAL BLOOD GAS pH 7.42 (7.35-7.45)
--- NOTE | 2022-05-11 20:30 | NUR ---
PT ASSESSMENT COMPLETED AT THIS TIME. PTS VSS. PT IS TACHYCARDIC AND ON AIRVO 50L AT 85% FIO2. PTS MOTHER IS AT BEDSIDE. PT IS NONVERBAL. PT HAS AN UNACCESSED R PORT.
--- NOTE | 2022-05-11 21:00 | NUR ---
PTS PORT ACCESSED FOR MEDICATION ADMINISTRATION AND FLUID REPLACEMENT.
--- NOTE | 2022-05-11 22:45 | NUR ---
PT HAD TEMP OF 102.4. GAVE PT TYLENOL PER MEDICATION ORDER.
[2022-05-12] VITALS (1302 sets, daily range): BP systolic 66–109; BP diastolic 40–69; PULSE 62–115; TEMP 97.9–102.8; O2SAT 62–100
--- NOTE | 2022-05-12 00:50 | NUR ---
PT BECAME VERY RESTLESS. PULLING AT AIRVO, PULSE OX, AND CORDS.
--- NOTE | 2022-05-12 02:44 | NUR ---
PERFORMED ASSESSMENT. ADMIN TREATMENT. PERFORMED ORAL CARE AND NTS. APPLIED MOUTH MOISTURIZER TO MOUTH AND LIPS. PT TOLERATED WELL. MOD TO LARGE AMT OF SECRETIONS SUCTIONED. SECRETIONS WERE THICK CLOUDY/WHITE AND STREAKED WITH BLOOD. PT RESTING IN BED COMFORTABLY POST SXN
[2022-05-12 05:53] LABS: MEAN CELL VOLUME 97 fl (80.0-100.0); MEAN CORPUSCULAR HGB CONC 33 g/dl (33.0-37.0); MEAN PLATELET VOLUME 11.2 fl (7.4-10.4); PLATELET COUNT 131 K/mm3 (130-400); RED BLOOD COUNT 3.49 M/mm3 (4.20-5.60); REDCELL DISTRIBUTION WIDTH-CV 12.5 % (11.5-14.5)
[2022-05-12 05:55] LABS: HEMOGLOBIN 11.1 g/dl (13.5-18.0); MEAN CORPUSCULAR HEMOGLOBIN 32 pg (27-31)
[2022-05-12 06:02] LABS: CALCIUM 8.8 mg/dL (8.4-10.2); CREATININE, serum 0.71 mg/dL (0.72-1.25); POTASSIUM 3.9 mmol/L (3.5-4.5)
--- NOTE | 2022-05-12 06:15 | NUR ---
DURING 0600 GLUCOSE CHECK PTS BLOOD GLUCOSE WAS 65. GAVE 1/2 AMP OF D50 PER HYPOGLYCEMIC PROTOCOL. RECHECKED BLOOD SUGAR 15 MINUTES LATER AND IT WAS 145.
[2022-05-12 06:31] LABS: BAND 18 % (0-10); EOSINOPHIL 1 % (0-4); LYMPHOCYTE 35 % (20.0-51.0); NEUTROPHILS 42 % (42.0-75.2); PLATELET ESTIMATE NORMAL (NORMAL)
[2022-05-12 07:06] LABS: ARTERIAL BLD GAS O2 SATURATION 91.3 % (92-100); ARTERIAL BLD GAS TCO2 CT 28.3; ARTERIAL BLOOD GAS HCO3 26.9 meq/L (22-26); ARTERIAL BLOOD GAS PCO2 48.1 mmHg (35-45); ARTERIAL BLOOD GAS PO2 59.1 mmHg (80-100); ARTERIAL BLOOD GAS pH 7.37 (7.35-7.45)
--- NOTE | 2022-05-12 08:17 | NUR ---
REPORT RECEIVED FROM JAY JAY WALTON; PATIENT CURRENTLY RESTING IN BED WITH ANTIBIOTICS AND LR RUNNING THROUGH HIS CHEST PORT; BLOOD PRESSURE IS A LITTLE SOFT THIS MORNING BUT MAP REMAINS ABOVE 65. PATIENT IS TACHYCARDIC WITH RATES IN THE 120S, AND PATIENT IS ALSO SLIGHTLY TACHYPNEIC BUT OVERALL SATTING IN THE HIGH 90S AFTER BEING SUCTIONED THIS MORNING BY RT.
--- NOTE | 2022-05-12 09:51 | NUR ---
cab worker met with patient's father Shahbaz ([phone]) at bedside. Patient is nonverbal and has Cerebral Palsy. Intake completed by patient's father. Patient is unable to complete any of his ADL's and his mother and father have to bathe him, dress him, feed him and provide his medications. Patient has a PEG tube and receives his feeding and medications through that. He normally does not require home oxygen but is currently on 15L. Per Shahbaz, patient is mainly wheelchair bound but is able to ambulate short distances with the help of his parents and is able to perform pivot transfers with their assistance. PCP is Dr. Wells and they utilizes [facility] for pharmacy needs. Patients parents are appointed as his guardians and a copy can be found in his EMR.
--- NOTE | 2022-05-12 13:01 | NUR ---
Dredge Worker rounds: Patient's father was in room with Patient. Father is a supply paper cup machine tender and will be giving the Saturday message at a baptism in [place], [place]. Father shared portions of his message with me today. Father knelt beside Patient's bed. Dredge Worker prayed for Patient's comfort and care; and for the message Father will give in the pulpit tomorrow. Father prayed for his son and forthe work of the international first officer today.
--- NOTE | 2022-05-12 19:00 | NUR ---
PT BEING INTUBATED AT TIME OF SHIFT CHANGE. SHIFT REPORT RECEIVED. PT SEDATED AND INTUBATED. PT CALM AFTER INTUBATION, APPEARS COMFORTABLE AT THIS TIME. NO BM THIS SHIFT. PT WITH SMALL HEALING ULCERATION ON RT HEEL, SKIN OTHERWISE IN GOOD CONDITION. HEEL FLOATERS PLACED.PT WITH PEG TUBE. PT WITH PORTACATH RT SUBCLAVIAN.
[2022-05-12 20:44] LABS: ARTERIAL BLD GAS TCO2 CT 25.2; ARTERIAL BLOOD GAS BASE EXCESS 1.2 (-2-2); ARTERIAL BLOOD GAS HCO3 24.2 meq/L (22-26); ARTERIAL BLOOD GAS PCO2 32.6 mmHg (35-45); ARTERIAL BLOOD GAS pH 7.49 (7.35-7.45)
[2022-05-12 20:48] LABS: ARTERIAL BLOOD GAS PO2 171.1 mmHg (80-100)
--- NOTE | 2022-05-12 22:29 | NUR ---
PT INTUBATED AT 1901 BY ANESTHESIA NO COMPLICATIONS. 7.5 ETT 23 @ TOP TEETH. ETCO2 COLOR CHANGED. BREATH SOUNDS BILAT. PLACED ON VENTILATOR PER CHARTED SETTINGS.
[2022-05-13] VITALS (1162 sets, daily range): BP systolic 79–126; BP diastolic 39–69; PULSE 68–93; TEMP 97.6–97.9; O2SAT 83–100
[2022-05-13 05:19] LABS: ARTERIAL BLD GAS O2 SATURATION 99.1 % (92-100); ARTERIAL BLD GAS TCO2 CT 22.9; ARTERIAL BLOOD GAS BASE EXCESS 0.6 (-2-2); ARTERIAL BLOOD GAS HCO3 22.1 meq/L (22-26); ARTERIAL BLOOD GAS PCO2 25.7 mmHg (35-45); ARTERIAL BLOOD GAS pH 7.55 (7.35-7.45)
[2022-05-13 05:20] LABS: ARTERIAL BLOOD GAS PO2 171.1 mmHg (80-100)
--- NOTE | 2022-05-13 05:43 | NUR ---
PT SEDATED NO CPAP TRIAL ATTEMPTED
[2022-05-13 06:16] LABS: MEAN CELL VOLUME 96 fl (80.0-100.0); MEAN CORPUSCULAR HEMOGLOBIN 32 pg (27-31); MEAN CORPUSCULAR HGB CONC 34 g/dl (33.0-37.0); PLATELET COUNT 145 K/mm3 (130-400); REDCELL DISTRIBUTION WIDTH-CV 12.2 % (11.5-14.5)
[2022-05-13 06:22] LABS: HEMATOCRIT 29.6 % (42.0-52.0)
[2022-05-13 06:25] LABS: CALCIUM 8.4 mg/dL (8.4-10.2); CREATININE, serum 0.67 mg/dL (0.72-1.25); MAGNESIUM 1.7 mg/dL (1.6-2.6); POTASSIUM 3.2 mmol/L (3.5-4.5)
--- NOTE | 2022-05-13 06:37 | NUR ---
PT PEG TUBE FLUSHES CHARTED PO TO REFLECT ACCURATE I&O'S.
[2022-05-13 07:40] LABS: BAND 28 % (0-10); EOSINOPHIL 2 % (0-4); LYMPHOCYTE 36 % (20.0-51.0); NEUTROPHILS 26 % (42.0-75.2)
[2022-05-13 07:42] LABS: DOHLE BODIES PRESENT
[2022-05-13 07:43] LABS: PLATELET ESTIMATE NORMAL (NORMAL)
--- NOTE | 2022-05-13 07:49 | NUR ---
REPORT RECEIVED FROM JAY JAY PARKER; PATIENT INTUBATED ON VENT WITH PROP, LEVO, AND ANTIBIOTICS RUNNING THROUGH HIS PORT AND HIS CENTRAL LINE. VITAL SIGNS ARE WITHIN NORMAL LIMITS THIS MORNING AND PATIENT IS RESTING COMFORTABLY IN BED.
[2022-05-13 12:29] LABS: ARTERIAL BLD GAS O2 SATURATION 98.1 % (92-100); ARTERIAL BLD GAS TCO2 CT 21.6; ARTERIAL BLOOD GAS BASE EXCESS -3.6 (-2-2); ARTERIAL BLOOD GAS HCO3 20.6 meq/L (22-26); ARTERIAL BLOOD GAS PCO2 34.1 mmHg (35-45)
--- NOTE | 2022-05-13 18:44 | NUR ---
SEDATION VACATION NOT PERFORMED TODAY PATIENT IS COMFORTABLY SEDATED WHILE ABLE TO RESPOND APPROPRIATELY TO VOICE.
--- NOTE | 2022-05-13 20:00 | NUR ---
PT ASSESSMENT COMPLETED AT THIS TIME. PT IS AFEBRILE, VSS. PT IS LIGHTLY SEDATED AND RESPONDS TO TOUCH.
--- NOTE | 2022-05-13 21:15 | NUR ---
PTS TUBE FEEDS INCREASED BY 15 PER ORDER. TUBE FEED IS NOW RUNNING AT 45.
[2022-05-14] VITALS (996 sets, daily range): BP systolic 104–136; BP diastolic 54–80; PULSE 86–110; TEMP 97.7–98.7; O2SAT 83–100
[2022-05-14 03:15] LABS: ARTERIAL BLD GAS O2 SATURATION 98.5 % (92-100); ARTERIAL BLD GAS TCO2 CT 25.4; ARTERIAL BLOOD GAS BASE EXCESS 0.8 (-2-2); ARTERIAL BLOOD GAS HCO3 24.3 meq/L (22-26); ARTERIAL BLOOD GAS pH 7.46 (7.35-7.45)
[2022-05-14 03:18] LABS: ARTERIAL BLOOD GAS PO2 133.1 mmHg (80-100)
--- NOTE | 2022-05-14 04:31 | NUR ---
PTS TUBE FEED INCREASED TO 50ML PER ORDER
--- NOTE | 2022-05-14 05:04 | NUR ---
NO SEDATION VACATION AT THIS TIME. PT IS LIGHTLY SEDATED. PT BECOMES AGITATED WHEN ASSESSED.
[2022-05-14 05:57] LABS: ALBUMIN 2.2 gm/dL (3.5-5.0); BILIRUBIN,TOTAL 0.4 mg/dL (0.2-1.2); CALCIUM 8.3 mg/dL (8.4-10.2); CREATININE, serum 0.63 mg/dL (0.72-1.25); MAGNESIUM 1.6 mg/dL (1.6-2.6); PHOSPHOROUS 1.2 mg/dL (2.3-4.7); POTASSIUM 3.7 mmol/L (3.5-4.5); TOTAL PROTEIN 5.1 gm/dL (6.2-8.1)
--- NOTE | 2022-05-14 06:07 | NUR ---
PT ON SEDATION AND 8 OF PEEP NO WEANING TRIALS
--- NOTE | 2022-05-14 07:17 | NUR ---
REPORT RECEIVED FROM JAY JAY WALTON; PATIENT CURRENTLY RESTING IN BED WITH ALL VITAL SIGNS WITHIN NORMAL LIMITS. PATIENT REMAINS SEDATED AND ON THE VENTILATOR WITH PROP RUNNING FOR SEDATION THROUGH HIS CENTRAL CHEST PORT. LEVO IS ALSO RUNNING THROUGH HIS CHEST PORT, WITH ANTIBIOTICS AND POTASSIUM RUNNING THROUGH HIS SUBCLAVIAN LINE. TUBE FEEDS ARE CURRENTLY RUNNING AT 50 ML/HR WHICH IS GOAL.
[2022-05-14 11:14] LABS: ARTERIAL BLD GAS O2 SATURATION 95.6 % (92-100); ARTERIAL BLD GAS TCO2 CT 25.1; ARTERIAL BLOOD GAS BASE EXCESS 0.6 (-2-2); ARTERIAL BLOOD GAS PCO2 34.5 mmHg (35-45); ARTERIAL BLOOD GAS PO2 72.6 mmHg (80-100); ARTERIAL BLOOD GAS pH 7.46 (7.35-7.45)
--- NOTE | 2022-05-14 17:01 | NUR ---
SEDATION VACATION NOT PERFORMED TODAY PATIENT IS COMFORTABLY SEDATED AND RESPONDS APPROPRIATELY TO VOICE; THERE ARE NO CONCERNS WITH NEUROLOGICAL STATUS AT THIS TIME.
--- NOTE | 2022-05-14 18:41 | NUR ---
PATIENT DID WELL TODAY; THERE WERE NO MAJOR CHANGES IN PATIENT'S CONDITION. PATIENT REMAINS ON LEVOPHED, PROPOFOL, LR AND ANTIBIOTICS. PATIENT IS STILL ON THE VENTILATOR AND VITAL SIGNS ARE WITHIN NORMAL LIMITS.
--- NOTE | 2022-05-14 20:00 | NUR ---
PT ASSSESSMENT COMPLETED. PTS VSS. PT IS SEDATED BUT AWAKENS TO SPEECH. PT DOES NOT FOLLOW COMMANDS BUT THAT IS PTS BASELINE. PT REPOSITIONED IN BED, ORAL AND CATHETER CARE COMPLETED.
[2022-05-15] VITALS (1347 sets, daily range): BP systolic 82–167; BP diastolic 45–105; PULSE 83–112; TEMP 98.2–99.8; O2SAT 82–100
[2022-05-15 04:05] LABS: ARTERIAL BLD GAS O2 SATURATION 94.7 % (92-100); ARTERIAL BLD GAS TCO2 CT 26.5; ARTERIAL BLOOD GAS BASE EXCESS 2.3 (-2-2); ARTERIAL BLOOD GAS HCO3 25.4 meq/L (22-26); ARTERIAL BLOOD GAS PCO2 34.2 mmHg (35-45); ARTERIAL BLOOD GAS PO2 67.4 mmHg (80-100); ARTERIAL BLOOD GAS pH 7.49 (7.35-7.45)
[2022-05-15 05:00] LABS: POTASSIUM 3.6 mmol/L (3.5-4.5)
--- NOTE | 2022-05-15 05:07 | NUR ---
PTS PROPOFOL DECREASED. PT IS STILL LIGHTLY SEDATED. WAKES UP TO STIMULATION. WILL OPEN EYES SPONTANEOUSLY. PT IS DISPLAYING AT HIS BASELINE.
--- NOTE | 2022-05-15 05:48 | NUR ---
NO weaning trial. thick secretions.
[2022-05-15 08:27] LABS: CALCIUM 8.3 mg/dL (8.4-10.2); CREATININE, serum 0.63 mg/dL (0.72-1.25); MAGNESIUM 1.5 mg/dL (1.6-2.6); PHOSPHOROUS 2.6 mg/dL (2.3-4.7)
--- NOTE | 2022-05-15 10:32 | NUR ---
BEDSIDE REPORT RECEIVED FROM JAY JAY FORD. ALL LINE/TUBE PLACEMENT CHECKED AND VERIFIED, DRIPS INFUSING ORDERED. VSS. BED ALARM ON FOR PT SAFETY.
[2022-05-15 11:35] LABS: ARTERIAL BLD GAS O2 SATURATION 95.1 % (92-100); ARTERIAL BLD GAS TCO2 CT 26.2; ARTERIAL BLOOD GAS BASE EXCESS 0.9 (-2-2); ARTERIAL BLOOD GAS PCO2 38.2 mmHg (35-45); ARTERIAL BLOOD GAS PO2 73.3 mmHg (80-100); ARTERIAL BLOOD GAS pH 7.43 (7.35-7.45)
--- NOTE | 2022-05-15 18:42 | NUR ---
PT GIVEN PRN MIRALAX AND SCHEDULED COLACE PT HAS NOT HAD A BM IN 4 DAYS. LEVOPHED RESTARTED AT 1230 FOR HYPOTENSION AND TITRATED PER ORDER, SEE TITRATION FLOW SHEET. SEDATION VACATION ATTEMPTED AT 1730, PROPOFOL DECREASED FROM 35MCG/KG/MIN TO 20 MCG/KG/MIN. PT BECAME AGITATED SHORTLY AFTER, RATE INCREASED TO 25MCG/KG/MIN. PT IS RESTING COMFORTABLY AT THIS TIME. PT'S MOTHER AT BEDSIDE.
--- NOTE | 2022-05-15 20:30 | NUR ---
PT ASSESSMENT COMPLETED. PT IS TACHYCARDIC, AND RESPONSIVE. PTS BP IS ABOVE A SYSTOLIC OF 90 AND A MAP OF 65, TITRATED LEVO DOWN TWICE. LEVOPHED IS CURRENTLY ON STANDBY AND PRESSURES REMAIN STABLE. PT IS AFEBRILE AND O2 SATS ARE ABOVE 90. PT HAS LOTS OF THICK WHITE SECRETIONS. FAMILY AT BEDSIDE.
[2022-05-16] VITALS (1408 sets, daily range): BP systolic 88–134; BP diastolic 49–79; PULSE 77–99; TEMP 97.4–98.9; O2SAT 72–100
[2022-05-16 03:33] LABS: ARTERIAL BLD GAS O2 SATURATION 95.5 % (92-100); ARTERIAL BLD GAS TCO2 CT 25.4; ARTERIAL BLOOD GAS BASE EXCESS 1.9 (-2-2); ARTERIAL BLOOD GAS HCO3 24.4 meq/L (22-26); ARTERIAL BLOOD GAS PCO2 30.8 mmHg (35-45); ARTERIAL BLOOD GAS PO2 74.2 mmHg (80-100); ARTERIAL BLOOD GAS pH 7.52 (7.35-7.45)
[2022-05-16 05:20] LABS: MEAN CELL VOLUME 96 fl (80.0-100.0); MEAN CORPUSCULAR HGB CONC 33 g/dl (33.0-37.0); MEAN PLATELET VOLUME 10.4 fl (7.4-10.4); PLATELET COUNT 179 K/mm3 (130-400); RED BLOOD COUNT 2.94 M/mm3 (4.20-5.60); REDCELL DISTRIBUTION WIDTH-CV 13.4 % (11.5-14.5)
--- NOTE | 2022-05-16 05:31 | NUR ---
SEDATION VACATION NOT TRIED AT THIS TIME. PT IS CURRENTLY AWAKE AND RESTLESS IS. WILL TRY AGAIN AT A LATER TIME
[2022-05-16 05:34] LABS: HEMOGLOBIN 9.2 g/dl (13.5-18.0); MEAN CORPUSCULAR HEMOGLOBIN 31 pg (27-31)
[2022-05-16 05:35] LABS: CALCIUM 8.7 mg/dL (8.4-10.2); CREATININE, serum 0.63 mg/dL (0.72-1.25); HEMATOCRIT 28.1 % (42.0-52.0); MAGNESIUM 1.6 mg/dL (1.6-2.6); POTASSIUM 3.8 mmol/L (3.5-4.5)
[2022-05-16 06:14] LABS: BAND 6 % (0-10); EOSINOPHIL 3 % (0-4); LYMPHOCYTE 25 % (20.0-51.0); NEUTROPHILS 56 % (42.0-75.2); NUCLEATED RED BLOOD CELL 1 (0-6); PLATELET ESTIMATE NORMAL (NORMAL)
[2022-05-16 13:51] LABS: ARTERIAL BLD GAS TCO2 CT 27.9; ARTERIAL BLOOD GAS BASE EXCESS 2.1 (-2-2); ARTERIAL BLOOD GAS HCO3 26.6 meq/L (22-26); ARTERIAL BLOOD GAS PCO2 41.3 mmHg (35-45); ARTERIAL BLOOD GAS PO2 93.8 mmHg (80-100); ARTERIAL BLOOD GAS pH 7.43 (7.35-7.45)
--- NOTE | 2022-05-16 19:03 | NUR ---
VACATAION SEDATION NOT NEEDED AT THIS TIME, PT AROUSES TO VOICE EASILY
--- NOTE | 2022-05-16 19:54 | NUR ---
PT HAD UNEVENTFUL DAY. PT ON PROPFOL AND LEVOPHED. SEE GTT TITRATION DOCS. PT OPENS EYES. PT BECAME MORE RESPONSIVE AND RESTLESS THIS AFTERNOON, GTTS TITRATED PER PROTOCOL. VS HAVE REMAINED STABLE.
--- NOTE | 2022-05-16 21:51 | NUR ---
BEDSIDE SHIFT REPORT RECEIVED FROM JAY JAY KIM. PT CURRENTLY RESTING IN BED, NO SIGNS OF PAIN OR DISCOMFORT NOTED AT THIS TIME. ALL LINES RUNNING ACCORDING TO REPORT (SEE DRIP FLOWSHEET). RICH DRAINING APPROPRIATELY. VENT SETTINGS ACCORDING TO REPORT. VSS. NO ACUTE CHANGES NOTED
[2022-05-17] VITALS (939 sets, daily range): BP systolic 84–134; BP diastolic 47–74; PULSE 76–98; TEMP 97.2–100.3; O2SAT 47–100
[2022-05-17 03:34] LABS: ARTERIAL BLD GAS O2 SATURATION 95.1 % (92-100); ARTERIAL BLD GAS TCO2 CT 23.8; ARTERIAL BLOOD GAS BASE EXCESS 0.2 (-2-2); ARTERIAL BLOOD GAS HCO3 22.9 meq/L (22-26); ARTERIAL BLOOD GAS PCO2 30.4 mmHg (35-45); ARTERIAL BLOOD GAS PO2 71.8 mmHg (80-100)
[2022-05-17 05:53] LABS: HEMOGLOBIN 10.1 g/dl (13.5-18.0); MEAN CELL VOLUME 98 fl (80.0-100.0); MEAN CORPUSCULAR HEMOGLOBIN 32 pg (27-31); MEAN CORPUSCULAR HGB CONC 32 g/dl (33.0-37.0); MEAN PLATELET VOLUME 10.5 fl (7.4-10.4); PLATELET COUNT 248 K/mm3 (130-400); RED BLOOD COUNT 3.18 M/mm3 (4.20-5.60); REDCELL DISTRIBUTION WIDTH-CV 13.3 % (11.5-14.5)
[2022-05-17 06:01] LABS: CALCIUM 9.3 mg/dL (8.4-10.2); CREATININE, serum 0.66 mg/dL (0.72-1.25); MAGNESIUM 1.8 mg/dL (1.6-2.6); POTASSIUM 3.6 mmol/L (3.5-4.5)
[2022-05-17 06:05] LABS: HEMATOCRIT 31.3 % (42.0-52.0)
--- NOTE | 2022-05-17 07:09 | NUR ---
PT NOT PLACED ON TRIAL AT THIS TIME
[2022-05-17 07:15] LABS: BAND 18 % (0-10); EOSINOPHIL 4 % (0-4); LYMPHOCYTE 37 % (20.0-51.0); METAMYELOCYTE 2 % (0-0); NEUTROPHILS 35 % (42.0-75.2); NUCLEATED RED BLOOD CELL 1 (0-6); PLATELET ESTIMATE NORMAL (NORMAL)
--- NOTE | 2022-05-17 08:01 | NUR ---
REPORT RECEIVED FROM JAY JAY VALADEZ; PATIENT CURRENTLY RESTING IN BED STILL ON THE VENTILATOR. VITAL SIGNS ARE ALL WITHIN NORMAL LIMITS WITH HEART RATE BEING SLIGHTLY TACHYCARDIC AT TIMES AND RIGHT OVER 100. PATIENT REMAINS ON PROP AND LEVO WHICH ARE BOTH RUNNING THROUGH HIS CENTRAL LINE. PATIENT STILL HAS CHEST PORT ACCESSIBLE AND TUBE FEEDS CONTINUE TO RUN AT GOAL OF 50. RICH CATHETER REMAINS IN PLACE.
--- NOTE | 2022-05-17 20:04 | NUR ---
SEDATION VACATION NOT DONE TODAY PATIENT IS RESPONSIVE TO VOICE; AT BASELINE PATIENT DOES NOT FOLLOW COMMANDS AND IS NON-VERBAL.
[2022-05-18] VITALS (1116 sets, daily range): BP systolic 99–139; BP diastolic 51–89; PULSE 71–94; TEMP 97.9–99.1; O2SAT 73–100
[2022-05-18 03:36] LABS: HEMOGLOBIN 10.3 g/dl (13.5-18.0); MEAN CELL VOLUME 98 fl (80.0-100.0); MEAN CORPUSCULAR HEMOGLOBIN 31 pg (27-31); MEAN CORPUSCULAR HGB CONC 32 g/dl (33.0-37.0); MEAN PLATELET VOLUME 9.8 fl (7.4-10.4); PLATELET COUNT 317 K/mm3 (130-400); REDCELL DISTRIBUTION WIDTH-CV 13.2 % (11.5-14.5)
[2022-05-18 03:38] LABS: HEMATOCRIT 32.3 % (42.0-52.0)
[2022-05-18 03:55] LABS: CREATININE, serum 0.61 mg/dL (0.72-1.25); POTASSIUM 3.9 mmol/L (3.5-4.5)
[2022-05-18 04:01] LABS: BAND 5 % (0-10); BASOPHIL 1 % (0-2); EOSINOPHIL 5 % (0-4); HYPOCHROMIA 2+; LYMPHOCYTE 48 % (20.0-51.0); NEUTROPHILS 27 % (42.0-75.2); PLATELET ESTIMATE NORMAL (NORMAL)
[2022-05-18 04:02] LABS: STOMATOCYTE 2+
--- NOTE | 2022-05-18 05:18 | NUR ---
PATIENT MEETS WEANING REQUIREMETNS
[2022-05-18 05:21] LABS: ARTERIAL BLOOD GAS pH 7.46 (7.35-7.45)
[2022-05-18 05:22] LABS: ARTERIAL BLD GAS O2 SATURATION 96.6 % (92-100); ARTERIAL BLOOD GAS HCO3 28.2 meq/L (22-26); ARTERIAL BLOOD GAS PCO2 40.9 mmHg (35-45)
--- NOTE | 2022-05-18 07:00 | NUR ---
REPORT RECEIVED FROM JAY JAY TIMMONS. PT HAD UNEVENTFUL NIGHT. REMAINS INTUBATED AND SEDATED. BILATERAL SOFT WRIST RESTRAINTS IN PLACE. NO S/S DISCOMFORT.
--- NOTE | 2022-05-18 13:22 | NUR ---
DECISION WAS MADE TO NOT EXTUBATE PT TODAY. PT RESTARTED ON PROPOFOL GTT AT PREVIOUS RATE.
[2022-05-19] VITALS (1067 sets, daily range): BP systolic 96–143; BP diastolic 53–100; PULSE 74–124; TEMP 97.3–99.9; O2SAT 73–100
--- NOTE | 2022-05-19 01:20 | NUR ---
RAILS X2 UP. RESTRAINTS SECURE. PT SLEEPING COMFORTABLY IN BED. AMBUBAG AT HEAD OF BED. VENT WHEELS LOCKED. VENT PLUGGED INTO RED OUTLET. NO SIGNS OF DISTRESS NOTED. PT IS SLEEPING COMFORTABLY. LARGE-COPIOUS AMOUNT OF ORAL SECRETIONS SUCTIONED. SMALL-MOD AMT SUCTIONED VIA ET TUBE. SECRETIONS ARE THICK/VISCOUS AND CLEAR/CLOUDY. NO COMPLAINTS FROM RN OR PT. NO VOICED CONCERNS. NO FAMILY PRESENT AT THIS TIME
--- NOTE | 2022-05-19 01:23 | NUR ---
2143 - VENT CHECK NOTES VENT WHEELS LOCKED. VENT PLUGGED INTO RED OUTLET. AMBUBAG AT HOB. HOB ELEVATED AT LEAST 30 DEGREES. THIS RT CONTINUES TO SUCTION MODERATE TO LARGE AMOUNTS OF CLEAR/CLOUDY VISCOUS ORAL SECRETIONS. SMALL AMOUNT OF SIMILAR SECRETIONS SUCTIONED FROM ET TUBE. RESTRAINTS ARE SECURE. VENT TUBING AND SXN TUBING OUT OF REACH. RAILS UP X2. NO VOICED CONCERNS FROM PT DAY CARE DIRECTOR. NO FAMILY IN ROOM AT THIS TIME
--- NOTE | 2022-05-19 01:27 | NUR ---
0047 VENT CHECK NOTES- VENT WHEELS ARE LOCKED AND SECURE. VENT PLUGGED INTO RED OUTLET. VENT WATER BAG MOSTLY FULL NO NEED TO CHANGE AT THIS TIME. RAILS UP X2. RESTRAINTS ARE SECURE ON WRISTS AND BED. AMBUBAG AT HEAD OF BED. NO SIGNS OF DISTRESS NOTED. NO VOICED CONCERNS FROM RN OR PT. NO FAMILY IN ROOM AT THIS TIME.
--- NOTE | 2022-05-19 03:36 | NUR ---
WATER BAG MOSTLY FULL ON VENT. NO INDICATION TO CHANGE AT THIS TIME. VENT PLUGGED INTO RED OUTLETS. VENT WHEELS LOCKED AND SECURE NEXT TO BED. RAILS UP X2. TUBING FOR SUCTION AND VENT OUT OF REACH OF PATIENT. MOD TO LRG SUCTIONED VIA ORALPHARYNGEAL. CLEAR/CLOUDY IN COLOR. SMALL AMT SUCTIONED FROM ET TUBE. CLEAR AND CLOUDY.AMBUBAG AT HEAD OF BED
--- NOTE | 2022-05-19 05:16 | NUR ---
PROPOFOL ON HOLD AT THIS TIME FOR SEDATION VACATION. CURRENTLY PT'S VSS W/ HR 77, BP 102/63, SPO2 96%, AND RR 12.
--- NOTE | 2022-05-19 05:34 | NUR ---
PT HAD EPISODE OF DESAT. AFTER VIGOROUS OROPHARYNGEAL SXN PT SATURATIONS IMPROVED. LARGE AMT SUCTIONED VIA OROPHARYNGEAL CLEAR/CLOUDY AND THICK. NO OTHER CHANGES MADE. TOLERATED WELL. PT REMAINS ON 30%
[2022-05-19 06:19] LABS: HEMOGLOBIN 10.6 g/dl (13.5-18.0); MEAN CELL VOLUME 100 fl (80.0-100.0); MEAN CORPUSCULAR HEMOGLOBIN 32 pg (27-31); MEAN CORPUSCULAR HGB CONC 32 g/dl (33.0-37.0); MEAN PLATELET VOLUME 9.7 fl (7.4-10.4); PLATELET COUNT 348 K/mm3 (130-400); RED BLOOD COUNT 3.32 M/mm3 (4.20-5.60)
[2022-05-19 06:31] LABS: CALCIUM 9.4 mg/dL (8.4-10.2); CREATININE, serum 0.65 mg/dL (0.72-1.25)
[2022-05-19 06:34] LABS: HEMATOCRIT 33.3 % (42.0-52.0)
[2022-05-19 08:13] LABS: BAND 8 % (0-10); BASOPHIL 2 % (0-2); EOSINOPHIL 4 % (0-4); HYPOCHROMIA 2+; LYMPHOCYTE 39 % (20.0-51.0); NEUTROPHILS 38 % (42.0-75.2); PLATELET ESTIMATE NORMAL (NORMAL)
[2022-05-19 08:14] LABS: STOMATOCYTE 1+
--- NOTE | 2022-05-19 10:30 | NUR ---
PT EXTUBATED WITH THIS NURSE AND RT GRACIELA BEDSIDE. PT PLACED ON OXYMASK 3 LNC.
--- NOTE | 2022-05-19 10:30 | NUR ---
Pt was extubated per Dr. Ramirez's order to 3LPM oxymask without complication with JAY JAY Vicente and mother at bedside.
--- NOTE | 2022-05-19 12:26 | NUR ---
SEE EXTUBATION NOTE
[2022-05-19 21:20] LABS: CLOSTRIDIUM DIFF A/B NEG; CLOSTRIDIUM DIFF A/B INTERP No C.diff present
[2022-05-20] VITALS (347 sets, daily range): BP systolic 101–122; BP diastolic 64–88; PULSE 76–111; TEMP 97.7–99.4; O2SAT 55–100
[2022-05-20 06:12] LABS: MEAN CORPUSCULAR HEMOGLOBIN 31 pg (27-31); MEAN CORPUSCULAR HGB CONC 33 g/dl (33.0-37.0); PLATELET COUNT 435 K/mm3 (130-400); RED BLOOD COUNT 3.51 M/mm3 (4.20-5.60); REDCELL DISTRIBUTION WIDTH-CV 12.9 % (11.5-14.5)
[2022-05-20 06:20] LABS: HEMATOCRIT 33.3 % (42.0-52.0)
[2022-05-20 06:21] LABS: MEAN CELL VOLUME 95 fl (80.0-100.0)
[2022-05-20 06:28] LABS: CALCIUM 9.3 mg/dL (8.4-10.2); CREATININE, serum 0.7 mg/dL (0.72-1.25); POTASSIUM 3.4 mmol/L (3.5-4.5)
[2022-05-20 07:02] LABS: BAND 4 % (0-10); EOSINOPHIL 2 % (0-4); LYMPHOCYTE 31 % (20.0-51.0); MYELOCYTE 1 % (0-0); NEUTROPHILS 56 % (42.0-75.2); PLATELET ESTIMATE INCREASED (NORMAL)
--- NOTE | 2022-05-20 10:52 | NUR ---
PER FAMILY NURSE BASELINE VITALS ARE BP 90-110 SYSTOLIC, 60-80 DIASTOLIC . HR 65-85.
--- NOTE | 2022-05-20 13:53 | NUR ---
Patient arrived to the unit by wheelchair accompanied by mother. He was transfered to the bed assisted x 1.
--- NOTE | 2022-05-20 15:12 | NUR ---
Continuous feeding tube restarted per orders. Telemetry in place, NSR. Hygiene provided after soft small BM. Continue monitoring
--- NOTE | 2022-05-20 17:53 | NUR ---
Patient has been tachycardic since he came to the unit 100-110. Continues getting feeding per orders. Mother is at the bedside. Report will be given to night RN.
--- NOTE | 2022-05-20 21:41 | NUR ---
Tx given via mask, tolerated well. Family X 1 at bedside. Pt on room air before and after tx. Breath sounds are coarse mostly d/t snoring respirations.
--- NOTE | 2022-05-20 22:45 | NUR ---
Pt sleeping at the time of assessment. Mom at bedside. Pericare provided due to bladder and bowel incontinence. Bed linen changed. Right chest port CDI. PEG tube on left side of abdomen running at 50ml/hr. Liquid medication administered after verification of placement and 70 ml of residual obtained. Flushed with 30ml of water with each medication. Pt got repositioned in bed. Call light within reach.
--- NOTE | 2022-05-20 23:37 | NUR ---
During reviewing of cardiac interpretation, HR of 36 on pt was noticed, but it wasn't notified by telemetry. Pt is currently running NS 70 BPM.
[2022-05-21 04:25] VITALS: BP 104/62; PULSE 70; TEMP 97.5
[2022-05-21 06:03] LABS: HEMOGLOBIN 11.1 g/dl (13.5-18.0); MEAN CELL VOLUME 99 fl (80.0-100.0); MEAN CORPUSCULAR HEMOGLOBIN 31 pg (27-31); MEAN CORPUSCULAR HGB CONC 32 g/dl (33.0-37.0); MEAN PLATELET VOLUME 9.2 fl (7.4-10.4); PLATELET COUNT 411 K/mm3 (130-400); RED BLOOD COUNT 3.53 M/mm3 (4.20-5.60); REDCELL DISTRIBUTION WIDTH-CV 13.2 % (11.5-14.5)
[2022-05-21 06:17] LABS: HEMATOCRIT 35.1 % (42.0-52.0)
[2022-05-21 06:28] LABS: BILIRUBIN,TOTAL 0.2 mg/dL (0.2-1.2); CALCIUM 9.2 mg/dL (8.4-10.2); CREATININE, serum 0.62 mg/dL (0.72-1.25); MAGNESIUM 2.3 mg/dL (1.6-2.6); PHOSPHOROUS 4.5 mg/dL (2.3-4.7); POTASSIUM 4.1 mmol/L (3.5-4.5)
--- NOTE | 2022-05-21 06:32 | NUR ---
Uneventful night. Pt slept through the entire night. Pt repositioned on his left side.
[2022-05-21 06:52] LABS: BAND 16 % (0-10); BASOPHIL 1 % (0-2); EOSINOPHIL 2 % (0-4); LYMPHOCYTE 39 % (20.0-51.0); NEUTROPHILS 36 % (42.0-75.2); PLATELET ESTIMATE NORMAL (NORMAL)
--- NOTE | 2022-05-21 08:00 | NUR ---
Pt asleep in bed. Morning medications administered via PEG tube per eMAR. Shift assessment completed. Telemetry on with NSR. Rhonchi on upper lobes JUSTIN noted during auscultation. O2 sat at 99% on room air WNL. Portacath on R upper chest intact; no redness or edema. PEG tube in L upper abdomen with continuous TPN infusing at 50mL/hr; intact. Minimal redness visible around insertion site. R heel has ulcer that is scabbed over. Caregiver at bedside. No further requests made at this time. Call light within reach.
[2022-05-21 08:03] VITALS: BP 111/65; PULSE 85; TEMP 97.7
--- NOTE | 2022-05-21 11:31 | NUR ---
DISCHARGE INSTRUCTIONS GIVEN, FATHER AND HOME HEALTH NURSE AT BEDSIDE, ALL QUESTIONS ANSWERED. PT PEG TUBE FEEDING STOPPED AND UNHOOKED. PORT LINE FLUSHED WITH PRN HEPARIN AND D/C. TELE D/C. PT ESCORTED DOWN TO VEHICLE WITH PERSONAL BELONGINGS.
== END 2022-05-21 11:37 | disposition home or self-care (01) | DRG 870 ==
LOC: COL.ER 06:10 → ICU 11:15 → MEDICAL 11:15 → ICU 17:55 → MEDICAL 05-20 13:57
PROVIDERS: Emergency Medicine; Hospitalist; Internal Medicine Pulmonary Disease; Physician Assistant; ADMIT Student in an Organized Health Care Education/Training Program
PROC: 0BH17EZ Insertion of Endotracheal Airway into Trachea, Via Natural or Artificial Opening (ICD-10-PCS; principal; 2022-05-12)
PROC: 5A1955Z Respiratory Ventilation, Greater than 96 Consecutive Hours (ICD-10-PCS; 2022-05-12)
PROC: 0BJ08ZZ Inspection of Tracheobronchial Tree, Via Natural or Artificial Opening Endoscopic (ICD-10-PCS; 2022-05-17)
DX: A41.9 Sepsis, unspecified organism (principal); R65.21 Severe sepsis with septic shock; J18.9 Pneumonia, unspecified organism; J69.0 Pneumonitis due to inhalation of food and vomit; J96.01 Acute respiratory failure with hypoxia; N17.9 Acute kidney failure, unspecified; G40.909 Epilepsy, unspecified, not intractable, without status epilepticus; E87.5 Hyperkalemia; G80.9 Cerebral palsy, unspecified; E83.42 Hypomagnesemia; R19.7 Diarrhea, unspecified; Z99.3 Dependence on wheelchair; Z20.822 Contact with and (suspected) exposure to COVID-19
CPT/HCPCS: A4314; J0330; J0692; J1644; J1650; J2060; J2543; J2704; J3010; J3370; J3475; J3480; J7030; J7050; J7060; J7120

== ENCOUNTER → 2022-10-08 | Outpatient (CLI) | payer MEDICAID ==
[~2022-10-08] MED LIST changes: +ATIVAN 0.50.5 MG/TAB PO; +DECADRON 4MG TAB4 MG PO; +DECADRON6 MG PEG; +DOXYCYCLIN25 MG/5 M1 PEG; +MASON NATURAL2000 IU PO; +MOLNUPIRAVIR (200 MG; +PROLIA60 MG/ML SQ; +PULMICORT0.5 MG/2 M IH; +ROXICODONE 55 MG/TAB PO
== END ==
LOC: COL.RAD 10:34
DX: L03.313 Cellulitis of chest wall (principal)

== ENCOUNTER 2022-10-16 08:18 | Day surgery (SDC) | payer MEDICAID ==
[~2022-10-16] VITALS: Ht 172.7 cm; Wt 62.7 kg
[2022-10-16 09:34] VITALS: BP 103/64; PULSE 73; TEMP 97
[2022-10-16] MEDS ORDERED: ONFI 10MG PO (09:43)
[2022-10-16] MEDS ORDERED: VIMPAT10 MG/ML (09:45)
[2022-10-16] MEDS ORDERED: EPIDIOLEX100 MG/1 M PO (09:46)
[2022-10-16] MEDS ORDERED: ATIVAN 0.50.5 MG/TAB PO (09:46)
[2022-10-16] MEDS ORDERED: ATIVAN 1MG T1 MG/TAB PO (09:50)
[2022-10-16] MEDS ORDERED: VERSED IJ (09:50)
[2022-10-16] MEDS ORDERED: NATURE'S B5000 IU/ML PO (09:53)
[2022-10-16] MEDS ORDERED: CALCIUM CITRAT200 M2 PO (09:57)
[2022-10-16] MEDS ORDERED: PROLIA60 MG/ML SQ (09:59)
[2022-10-16] MEDS ORDERED: FERROUS SU300 MG/5 M PO (10:00)
[2022-10-16] MEDS ORDERED: JEVITY 1.5 CAL237 ML PO (10:01)
[2022-10-16] MEDS ORDERED: CEPHALEXIN500 M1 PO (11:11)
[2022-10-16 11:38] VITALS: BP 105/53; PULSE 68; TEMP 97.3
[2022-10-16 11:51] VITALS: TEMP 97.8
[2022-10-16 11:55] VITALS: BP 101/61; PULSE 64
[2022-10-16 12:10] VITALS: PULSE 61
--- NOTE | 2022-10-16 15:14 | NUR ---
1138 PT TO [facility] [place] [facility] FROM PACU S/P I&D AND REMOVAL OF INFECTED PORTACATH. H/O CERBRAL PALSY, NONVERBAL - AT BASELINE MENTATION, VS WDL ON 2L (REPORTEDLY USES O2 AT NOC). DRSG HAS SCANT NOTEABLE SEROSANGUINOUS SEEPAGE UPON ARRIVAL (NEW CAR GET READY MECHANIC NOTED OUTLINE ON DRSG) - SURGICAL WOUND TO R CHEST WAS REPORTEDLY LEFT OPEN TO DRAIN ON ONE EDGE OF INCISION - FAMILY AT BEDSIDE - UPDATED ON DRSG CARE - VUI. PT PLACED ON MONITOR AND WALL O2. AWAKE AND WITHOUT INDICATION OF PAIN/DISCOMFORT - AT BASELINE PER FAMILY. PT GETS ALL NUTRITION VIA PEG TUBE, WHICH FAMILY DOES NOT HAVE ADAPTABLE SYRINGE WITH THEM, OR SUPPLIES DON'T FIT CONNECTION. FAMILY TO GIVE NUTRITION AT HOME. IVF ALLOWED TO CONTINUE ORDERED, PT IS NOT EATING/DRINKING WHILE IN RECOVERY. 1150 PLACED ON ROOM AIR, VSS. FAMILY GETTING PT UP AND DRESSED, WILL GET HIM INTO HIS W/C - FAMILY ENCOURAGED RN ASSIST NEEDED. D/C INSTRUCTIONS BEING SET UP. 1210 IV D/C'D, D/C AND F/U INSTRUCTIONS REVIEWED AND PROVIDED TO FAMILY. ADDITIONAL DRSG SUPPLIES ALSO PROVIDED - CG/MOM IS HCP AND COMPETENT TO CARE FOR WOUND, WOUND CARE REVIEWED. PT REMAINS ALERT AND AT BASELINE, NAD AND WITHOUT APPARENT DISCOMFORT. FAMILY HAS PLACED PT IN W/C. VS WDL ON RA. ASSISTED TO EXIT IN PT W/C WITH ALL BELONGINGS AND PAPERWORK.
== END 2022-10-16 12:15 | disposition home or self-care (01) ==
LOC: SDCO 08:18
DX: Z45.2 Encounter for adjustment and management of vascular access device (principal); L03.313 Cellulitis of chest wall
CPT/HCPCS: J0690; J2704; J3010

== ENCOUNTER 2024-03-03 10:24 | Inpatient (IN) | payer MEDICAID ==
[~2024-03-03] VITALS: Ht 172.7 cm; Wt 66.8 kg
[2024-03-03] VITALS (418 sets, daily range): BP systolic 92; BP diastolic 50–54; PULSE 97–114; TEMP 98.9–100.5; O2SAT 75–100
[~2024-03-03 10:24] MED LIST changes: +ATIVAN 0.50.5 MG/TAB PEG; +CEPHALEXIN500 M1 PO; +JEVITY 1.5 CAL237 ML PEG; +NATURE'S B5000 IU/ML PO; +NAYZILAM5 MG/0.1 M NS; +NOVAFERRUM125 MG/51 PEG; +[UNRECOGNIZED DRUG - OTHER] PEG
[2024-03-03] MEDS ORDERED: NS 1,000 ML IV ONE ×2 (10:45→11:45)
[2024-03-03 11:05] LABS: BASO % 0.2 % (0.0-2.0); EOS % 0.1 % (0.0-4.0); GRAN # 10.1 K/mm3 (1.4-6.5); GRAN % 79.9 % (42.2-75.2); HEMATOCRIT 45.9 % (42.0-52.0); HEMOGLOBIN 14.9 g/dl (13.5-18.0); LYMPH # 1.2 K/mm3 (1.2-3.4); LYMPH % 9.7 % (20.0-51.0); MEAN CELL VOLUME 96 fl (80.0-100.0); MEAN CORPUSCULAR HEMOGLOBIN 31 pg (27-31); MEAN CORPUSCULAR HGB CONC 33 g/dl (33.0-37.0); MEAN PLATELET VOLUME 10.7 fl (7.4-10.4); MONO # 1.2 K/mm3 (0.1-0.6); MONO % 9.5 % (1.7-9.3); PLATELET COUNT 281 K/mm3 (130-400); REDCELL DISTRIBUTION WIDTH-CV 12.4 % (11.5-14.5)
[2024-03-03] MEDS ORDERED: metroNIDAZOLE 100 ML IV ONE (11:15)
[2024-03-03] MEDS ORDERED: cefTRIAXone 1 G in Water For Injection,Sterile 10 ML IV ONE (11:15)
[2024-03-03 11:24] LABS: ALBUMIN 4.2 g/dL (3.5-5.0); BILIRUBIN,TOTAL 0.2 mg/dL (0.2-1.2); CALCIUM 9.9 mg/dL (8.4-10.2); CREATININE, serum 1.25 mg/dL (0.72-1.25); POTASSIUM 4.7 mEq/L (3.5-4.5); TOTAL PROTEIN 7.6 g/dl (6.2-8.1)
[2024-03-03] MEDS ORDERED: *Potassium Replacement Protocol MC SCH (12:00)
[2024-03-03] MEDS ORDERED: NS 1,000 ML IV SCH (12:45)
[2024-03-03] MEDS ORDERED: ATIVAN 1MG T1 MG/TAB PEG (15:29)
[2024-03-03] MEDS ORDERED: Acetaminophen 325 MG TAB PO PRN (15:30)
[2024-03-03] MEDS ORDERED: PROLIA60 MG/ML SQ (15:32)
[2024-03-03] MEDS ORDERED: LORazepam 1 MG TAB PO SCH (16:28)
[2024-03-03] MEDS ORDERED: LORazepam 2 MG/ML 1 ML VIAL IV ONE (16:30)
[2024-03-03] MEDS ORDERED: LORazepam 2 MG/ML 1 ML VIAL IV PRN (16:30)
[2024-03-03] MEDS ORDERED: Patient's Own Medication Item PO SCH ×2 (16:54→16:57)
[2024-03-03] MEDS ORDERED: Patient's Own Medication Item PEG SCH (17:00)
[2024-03-03] MEDS ORDERED: Sodium Chloride 3% For Neb Soln 4 ML AMP IH PRN (18:45)
[2024-03-03] MEDS ORDERED: Albuterol 0.083% Neb Soln 2.5 MG/3 ML UD IH PRN (18:45)
[2024-03-03 19:59] LABS: ARTERIAL BLD GAS O2 SATURATION 95.9 % (92-100); ARTERIAL BLOOD GAS HCO3 20.8 meq/L (22-26); ARTERIAL BLOOD GAS PCO2 41.2 mmHg (35-45); ARTERIAL BLOOD GAS PO2 81.6 mmHg (80-100); ARTERIAL BLOOD GAS pH 7.32 (7.35-7.45)
[2024-03-03] MEDS ORDERED: levETIRAcetam 1,000 MG in Syringe 1 EACH IV SCH (21:00)
[2024-03-04] VITALS (1105 sets, daily range): BP systolic 86–129; BP diastolic 54–70; PULSE 86–110; TEMP 98.5–99.3; O2SAT 78–100
[2024-03-04 04:53] LABS: BASO % 0.3 % (0.0-2.0); EOS % 0.3 % (0.0-4.0); GRAN % 76.6 % (42.2-75.2); LYMPH # 1.8 K/mm3 (1.2-3.4); LYMPH % 17.5 % (20.0-51.0); MEAN CELL VOLUME 95 fl (80.0-100.0); MEAN CORPUSCULAR HGB CONC 33 g/dl (33.0-37.0); MONO # 0.5 K/mm3 (0.1-0.6); RED BLOOD COUNT 3.54 M/mm3 (4.20-5.60); REDCELL DISTRIBUTION WIDTH-CV 12.6 % (11.5-14.5)
[2024-03-04 04:56] LABS: HEMATOCRIT 33.5 % (42.0-52.0); HEMOGLOBIN 10.9 g/dl (13.5-18.0); MEAN CORPUSCULAR HEMOGLOBIN 31 pg (27-31); PLATELET COUNT 170 K/mm3 (130-400)
[2024-03-04 05:10] LABS: CALCIUM 7.6 mg/dL (8.4-10.2); CREATININE, serum 0.99 mg/dL (0.72-1.25); MAGNESIUM 2.2 mg/dL (1.6-2.6); PHOSPHOROUS 1.8 mg/dL (2.3-4.7); POTASSIUM 4.1 mEq/L (3.5-4.5)
[2024-03-04] MEDS ORDERED: LR 1,000 ML IV SCH (08:45)
[2024-03-04] MEDS ORDERED: DOXYCYCLINE MONOHYDRATE 25 MG/5 ML PO SCH (09:00)
[2024-03-04] MEDS ORDERED: Scopolamine 1 MG Delivered 3-Day PATCH TD SCH (10:15)
[2024-03-05] VITALS (507 sets, daily range): BP systolic 100–114; BP diastolic 67–78; PULSE 73–96; TEMP 98.3–99.7; O2SAT 77–100
[2024-03-05] MEDS ORDERED: LORazepam 2 MG/ML 1 ML VIAL IV ONE ×2 (01:00→03:00)
[2024-03-05 06:54] LABS: BASO % 0.3 % (0.0-2.0); EOS # 0.2 K/mm3 (0.0-0.7); EOS % 1.8 % (0.0-4.0); GRAN # 6.7 K/mm3 (1.4-6.5); GRAN % 69.3 % (42.2-75.2); HEMATOCRIT 32.8 % (42.0-52.0); HEMOGLOBIN 10.7 g/dl (13.5-18.0); LYMPH # 2.2 K/mm3 (1.2-3.4); LYMPH % 22.6 % (20.0-51.0); MEAN CELL VOLUME 94 fl (80.0-100.0); MEAN CORPUSCULAR HEMOGLOBIN 31 pg (27-31); MEAN CORPUSCULAR HGB CONC 33 g/dl (33.0-37.0); MEAN PLATELET VOLUME 10.1 fl (7.4-10.4); MONO # 0.6 K/mm3 (0.1-0.6); MONO % 5.8 % (1.7-9.3); PLATELET COUNT 157 K/mm3 (130-400); REDCELL DISTRIBUTION WIDTH-CV 12.8 % (11.5-14.5)
[2024-03-05 07:15] LABS: ALBUMIN 3.2 g/dL (3.5-5.0); CALCIUM 7.8 mg/dL (8.4-10.2); CREATININE, serum 0.73 mg/dL (0.72-1.25); PHOSPHOROUS 1.6 mg/dL (2.3-4.7); POTASSIUM 3.7 mEq/L (3.5-4.5)
[2024-03-05] MEDS ORDERED: Potassium Phoshate 30 MM in NS 250 ML IV ONE (08:00)
[2024-03-05] MEDS ORDERED: DOXYCYCLIN25 MG/5 M1 PO (10:26)
[2024-03-05] MEDS ORDERED: AUGMENTIN 400100 ML PO (10:39)
== END 2024-03-05 11:11 | disposition home or self-care (01) | DRG 871 ==
LOC: COL.ER 10:24 → ICU 11:48
PROVIDERS: Nurse Practitioner Family; Personal Emergency Response Attendant; ADMIT Internal Medicine
DX: A41.9 Sepsis, unspecified organism (principal); J69.0 Pneumonitis due to inhalation of food and vomit; J96.01 Acute respiratory failure with hypoxia; E87.29 Other acidosis; R65.20 Severe sepsis without septic shock; R13.10 Dysphagia, unspecified; R62.59 Other lack of expected normal physiological development in childhood; M41.9 Scoliosis, unspecified; I95.9 Hypotension, unspecified; E83.39 Other disorders of phosphorus metabolism; G80.9 Cerebral palsy, unspecified; G40.909 Epilepsy, unspecified, not intractable, without status epilepticus; Z93.1 Gastrostomy status; Z88.6 Allergy status to analgesic agent; Z88.8 Allergy status to other drugs, medicaments and biological substances; Z99.3 Dependence on wheelchair; Z79.899 Other long term (current) drug therapy; Z91.81 History of falling; Z23 Encounter for immunization
CPT/HCPCS: J0696; J1650; J1836; J1953; J2060; J2543; J3370; J7030; J7050; J7120

== ENCOUNTER 2024-04-18 13:02 | Inpatient (IN) | payer MEDICAID ==
[2024-04-18] VITALS (452 sets, daily range): BP systolic 102–113; BP diastolic 58–70; PULSE 104–112; TEMP 99.2–101.3; O2SAT 91–98
[~2024-04-18] VITALS: Ht 172.7 cm; Wt 64.8 kg
[~2024-04-18 13:02] MED LIST changes: +DOXYCYCLIN25 MG/5 M1 PO
[2024-04-18] MEDS ORDERED: NS 1,000 ML IV ONE ×2 (13:15→14:15)
[2024-04-18 13:26] LABS: BASO % 0.2 % (0.0-2.0); EOS % 0.2 % (0.0-4.0); GRAN # 3.2 K/mm3 (1.4-6.5); HEMATOCRIT 45.8 % (42.0-52.0); HEMOGLOBIN 15.4 g/dl (13.5-18.0); LYMPH # 1.2 K/mm3 (1.2-3.4); LYMPH % 25.7 % (20.0-51.0); MEAN CELL VOLUME 93 fl (80.0-100.0); MEAN CORPUSCULAR HEMOGLOBIN 31 pg (27-31); MEAN CORPUSCULAR HGB CONC 34 g/dl (33.0-37.0); MEAN PLATELET VOLUME 10.5 fl (7.4-10.4); MONO # 0.3 K/mm3 (0.1-0.6); MONO % 5.5 % (1.7-9.3); PLATELET COUNT 236 K/mm3 (130-400); RED BLOOD COUNT 4.91 M/mm3 (4.20-5.60); REDCELL DISTRIBUTION WIDTH-CV 12.3 % (11.5-14.5)
[2024-04-18 13:37] LABS: ARTERIAL BLD GAS O2 SATURATION 85.1 % (92-100); ARTERIAL BLD GAS TCO2 CT 26.9; ARTERIAL BLOOD GAS BASE EXCESS 0.1 (-2-2); ARTERIAL BLOOD GAS HCO3 25.6 meq/L (22-26); ARTERIAL BLOOD GAS PCO2 44.2 mmHg (35-45); ARTERIAL BLOOD GAS PO2 49.1 mmHg (80-100); ARTERIAL BLOOD GAS pH 7.38 (7.35-7.45)
[2024-04-18 13:45] LABS: ALBUMIN 4.2 g/dL (3.5-5.0); BILIRUBIN,TOTAL 0.3 mg/dL (0.2-1.2); C-REACTIVE PROTEIN 0.81 mg/dL (0.00-0.50); CREATININE, serum 0.95 mg/dL (0.72-1.25); POTASSIUM 3.8 mEq/L (3.5-4.5); TOTAL PROTEIN 7.8 g/dl (6.2-8.1)
[2024-04-18] MEDS ORDERED: Polyethylene Glycol 3350 17 GM PDS PO PRN (15:45)
[2024-04-18] MEDS ORDERED: Docusate Sodium 100 MG CAP PO PRN (15:45)
[2024-04-18] MEDS ORDERED: Ondansetron 4 MG/2 ML VIAL IV PRN (15:45)
[2024-04-18] MEDS ORDERED: Acetaminophen 325 MG TAB PO PRN (15:45)
[2024-04-18] MEDS ORDERED: Pantoprazole 40 MG in NS 10 ML IV SCH (15:59)
[2024-04-18] MEDS ORDERED: LORazepam 2 MG/ML 1 ML VIAL IV PRN (16:00)
[2024-04-18] MEDS ORDERED: NS 1,000 ML IV SCH (16:00)
[2024-04-18] MEDS ORDERED: VITAMIN C PEG (17:23)
[2024-04-18] MEDS ORDERED: LORazepam 0.5 MG TAB PO SCH (21:00)
[2024-04-18] MEDS ORDERED: Patient's Own Medication Item PEG SCH ×3 (21:00)
--- NOTE | 2024-04-18 23:56 | NUR ---
PT IS RESTING IN THE BED WITH HIS EYES OPEN. HE IS NONVERBAL AT BASELINE. HE HAS A BRIEF IN PLACE. AN OXYMASK IN PLACE. HE HAS A KIRK BUTTON. HIS MOTHER HAS BROUGHT IN HIS MEDICATION SYRINGE AND MEDICATION TUBING FOR THE KIRK BUTTON. HE HAS A RIGHT CHEST PORT A CATH WITH FLUIDS INFUSING. HIS FAMILY HAS GONE FOR THE EVENING.
[2024-04-19] VITALS (822 sets, daily range): BP systolic 97–145; BP diastolic 62–86; PULSE 97–122; TEMP 98.2–99.4; O2SAT 79–99
[2024-04-19 04:51] LABS: BASO % 0.4 % (0.0-2.0); EOS # 0.2 K/mm3 (0.0-0.7); EOS % 2.3 % (0.0-4.0); GRAN # 5.8 K/mm3 (1.4-6.5); GRAN % 69.3 % (42.2-75.2); LYMPH # 1.7 K/mm3 (1.2-3.4); LYMPH % 20.2 % (20.0-51.0); MEAN CORPUSCULAR HGB CONC 34 g/dl (33.0-37.0); MEAN PLATELET VOLUME 10.7 fl (7.4-10.4); MONO # 0.7 K/mm3 (0.1-0.6); MONO % 7.8 % (1.7-9.3); PLATELET COUNT 164 K/mm3 (130-400); RED BLOOD COUNT 3.77 M/mm3 (4.20-5.60); REDCELL DISTRIBUTION WIDTH-CV 12.6 % (11.5-14.5)
[2024-04-19 04:58] LABS: HEMATOCRIT 35.5 % (42.0-52.0); MEAN CELL VOLUME 94 fl (80.0-100.0); MEAN CORPUSCULAR HEMOGLOBIN 32 pg (27-31)
[2024-04-19 05:11] LABS: ALBUMIN 3.2 g/dL (3.5-5.0); BILIRUBIN,TOTAL 0.5 mg/dL (0.2-1.2); CALCIUM 8.4 mg/dL (8.4-10.2); CREATININE, serum 0.87 mg/dL (0.72-1.25); POTASSIUM 3.7 mEq/L (3.5-4.5); TOTAL PROTEIN 6.2 g/dl (6.2-8.1)
[2024-04-19] MEDS ORDERED: LORazepam 1 MG TAB PO ONE ×2 (06:30→17:00)
--- NOTE | 2024-04-19 06:45 | NUR ---
PT LAYING IN BED. INTERMITTENTLY YELLING AND CLAPPING. PT IS ON RA. PT IS ST 110'S ON TELE. PT'S EYES OPEN AND LOOKING AROUND THE ROOM. PT UNABLE TO TRACK, FOLLOW COMMANDS AND IS NON VERBAL, PER BASELINE. PT IS A FALL RISK. FALL PRECAUTIONS IN PLACE AND BEDALARM ACTIVE.
--- NOTE | 2024-04-19 08:15 | NUR ---
ORAL CARE PROVIDED. PT STILL INTERMITTENTLY YELLING AND CLAPPING. DAD BEDSIDE. DISCUSSED WITH DAD REGARDING HOLDING TF UNTIL SPEAK WITH TODAY. ALSO DISCUSSED PT'S LAST BM Saturday04/17/24 AND NORMAL EVERY 3-4 DAYS THEY GIVE HIM AN EMEMA. DAD WOULD LIKE TO WAIT AND HOPEFULLY BE ABLE TO DO AT HOME LATER TODAY OR TOMORROW. MEDS GIVEN PER JOSEPH-GARY BUTTON AND FLUSHED. DAD UPDATED ON OVERNIGHT AND PLAN FOR TODAY. INSTRUCTED DAD TO CALL WITH ALL NEEDS.
--- NOTE | 2024-04-19 08:50 | NUR ---
SW met with patient to complete intake. Father of patient present during intake: Shahbaz Reeves [phone] who is also appointed guardian and POA for patient along with mother Herminia Reeves [phone]. Patient unable to complete intake due to clinical dx CB. Father assisted with intake providing patient obtains total care from family, PCP is Dr Wells, and pharmacy is [facility]. Father provides plan for patient is to return to his home with family in [facility] upon discharge. SW will continue to follow. Discharge plan: back home with family
--- NOTE | 2024-04-19 11:04 | NUR ---
Pt has been tachycardic, restless and aggitated for over 20 mins. Pt's VSS except HR. Pt repositioned. Pt checked and is dry. Music turned on but appeared to make pt more restless. Held Pt's hand and attempted to soothe multiple times without success. called but no answer.
--- NOTE | 2024-04-19 11:29 | NUR ---
1115-Pt's mom arrived. Discussed with her that Pt has been aggitated and tachycardic. Discussed all things we have tried to help calm Pt. This RN does question if maybe he is restless due to being NPO. Spoke with mom regarding his TF schedule at home. Data Management Engineer called and is speaking with mom.
--- NOTE | 2024-04-19 12:54 | NUR ---
1245-TF STARTED AT 20ML HR. MOM, TRIM SAWYER, AND THIS RN DISCUSSED NEW TF SCHEDULE AND FLUSHES.
--- NOTE | 2024-04-19 16:56 | NUR ---
Pt is restless and aggitated. Pt hitting the side rails and himself. Attempted repositioning, music, tv, holding his hand and trying to calm him. With no success. Notified of above. Order received for one time dose of ativan.
[2024-04-19] MEDS ORDERED: [UNRECOGNIZED DRUG - REMARK] PEG SCH (21:00)
[2024-04-19] MEDS ORDERED: [UNRECOGNIZED DRUG - REMARK] PEG SCH (21:00)
[2024-04-20] VITALS (553 sets, daily range): BP systolic 106–127; BP diastolic 78–84; PULSE 78–107; TEMP 98.2–98.6; O2SAT 68–98
[2024-04-20 05:30] LABS: BASO % 0.1 % (0.0-2.0); EOS # 0.1 K/mm3 (0.0-0.7); EOS % 1.6 % (0.0-4.0); GRAN # 5.2 K/mm3 (1.4-6.5); GRAN % 70.5 % (42.2-75.2); HEMOGLOBIN 10.7 g/dl (13.5-18.0); LYMPH # 1.5 K/mm3 (1.2-3.4); LYMPH % 20.2 % (20.0-51.0); MEAN CELL VOLUME 93 fl (80.0-100.0); MEAN CORPUSCULAR HEMOGLOBIN 32 pg (27-31); MEAN CORPUSCULAR HGB CONC 34 g/dl (33.0-37.0); MEAN PLATELET VOLUME 10.8 fl (7.4-10.4); MONO # 0.5 K/mm3 (0.1-0.6); MONO % 7.2 % (1.7-9.3); PLATELET COUNT 147 K/mm3 (130-400); REDCELL DISTRIBUTION WIDTH-CV 12.5 % (11.5-14.5)
[2024-04-20 05:32] LABS: HEMATOCRIT 31.7 % (42.0-52.0)
[2024-04-20 05:43] LABS: MAGNESIUM 1.8 mg/dL (1.6-2.6); PHOSPHOROUS 1.7 mg/dL (2.3-4.7)
[2024-04-20 05:59] LABS: ALBUMIN 3.1 g/dL (3.5-5.0); BILIRUBIN,TOTAL 0.5 mg/dL (0.2-1.2); CALCIUM 8.2 mg/dL (8.4-10.2); CREATININE, serum 0.74 mg/dL (0.72-1.25); POTASSIUM 3.5 mEq/L (3.5-4.5); TOTAL PROTEIN 5.9 g/dl (6.2-8.1)
--- NOTE | 2024-04-20 07:31 | NUR ---
THIS NURSE RECIEVED REPORT FROM JAY JAY GUZMÁN. PATIENT IS IN BED, MAKING NOISES/TALKING, BUT SEEMING TO BE FIGHTING SLEEP. NS IS RUNNING INTO HIS R SUBCLAVIAN PORT AT 75 ML/HR. TUBE FEEDING IS STOPPED AT THIS TIME. VITAL SIGNS ARE STABLE. BED IS IN LOW POSITION AND CALL LIGHT WITHIN THE PATIENT'S REACH.
[2024-04-20] MEDS ORDERED: PROBIOTIC ACID1 EAC3 PO (08:15)
--- NOTE | 2024-04-20 08:30 | NUR ---
PATIENT IS SNORING. PATIENT HAD AN O2 DESATURATION INTO THE 70'S, BUT THIS NURSE WOKE HIM UP, AND PATIENT RECOVERED HIS O2 SATURATION TO 92%. PATIENT IS AT BASELINE, TALKING/GROANING WORDS. PATIENT DOES HAVE A COUGH, BUT HAS NOT COUGHED UP ANY SPUTUM. BED IS IN LOW POSITION AND CALL LIGHT IS WITHIN THE PATIENT'S REACH.
[2024-04-20] MEDS ORDERED: AUGMENTIN 400100 ML PO (09:10)
[2024-04-20] MEDS ORDERED: Potassium Phoshate 20 MM in NS 250 ML IV ONE (09:30)
--- NOTE | 2024-04-20 09:41 | NUR ---
SW attended clinical rounding and was informed pt will discharge home today with family. Discharge Plan: home with family
--- NOTE | 2024-04-20 14:05 | NUR ---
PATIENT IS ACCOMPANIED BY MOM AND DAD. MOM HELPED TO GATHER ALL OF THE PATIENT'S BELONGINGS AND PLACE THEM IN A BAG. PATIENT'S VITAL SIGNS ARE STABLE, AND HE HAS BEEN UNHOOKED FROM THE MONITOR. THE PATIENT'S IV FLUID AND POTASSIUM PHOSPHATE ARE COMPLETE AND HAVE BEEN DISCONNECTED. THE PATIENT'S PORT WAS FLUSHED WITH HEPARIN AND DEACCESSED. THE PATIENT'S HOME MEDICATIONS THAT WERE IN THE PYXIS AND MEDICATION ROOM, WERE GIVEN BACK TO THE PATIENT'S MOM. DISCHARGE EDUCATION WAS COMPLETED AND QUESTIONS WERE ANSWERED ON THE SPOT. PATIENT ESCORTED OUT AT 1405 BY MOM AND DAD.
== END 2024-04-20 14:05 | disposition home or self-care (01) | DRG 871 ==
LOC: COL.ER 13:02 → ICU 14:05
PROVIDERS: Emergency Medicine; ADMIT Hospitalist
DX: A41.9 Sepsis, unspecified organism (principal); J69.0 Pneumonitis due to inhalation of food and vomit; J96.01 Acute respiratory failure with hypoxia; R53.2 Functional quadriplegia; G40.812 Lennox-Gastaut syndrome, not intractable, without status epilepticus; K21.9 Gastro-esophageal reflux disease without esophagitis; G80.9 Cerebral palsy, unspecified; R13.10 Dysphagia, unspecified; Z20.822 Contact with and (suspected) exposure to COVID-19; M41.9 Scoliosis, unspecified; K27.9 Peptic ulcer, site unspecified, unspecified as acute or chronic, without hemorrhage or perforation; G40.909 Epilepsy, unspecified, not intractable, without status epilepticus; Z99.3 Dependence on wheelchair; Z93.1 Gastrostomy status; Z88.6 Allergy status to analgesic agent; Z88.8 Allergy status to other drugs, medicaments and biological substances; Z91.81 History of falling; Z79.899 Other long term (current) drug therapy; Z23 Encounter for immunization
CPT/HCPCS: J1650; J2470; J2543; J7030; J7050